=== PATIENT | female | born 1990 | race Two or more races ===

== ENCOUNTER 2016-11-17 02:42 | Emergency (ER) | payer MEDICAID ==
[2016-11-17] MEDS ORDERED: ONDANSETRON 4 MG TAB.RAPDIS PO ONE (03:20)
--- NOTE | 2016-11-17 03:25 | ER Document Report ---
ED General - General Mode of Arrival: Ambulatory Information source: Patient TRAVEL OUTSIDE OF THE [place] IN LAST 30 DAYS: No - HPI Onset: Other - Refer to HPI notes Similar symptoms previously: No Recently seen / treated by doctor: No - General Chief Complaint: Abdominal Pain Stated Complaint: BACK PAIN Time Seen by Provider: 11/17/16 03:12 - HPI Notes: Patient is a 26-year-old female presents emergency department for back pain and abdominal pain. Patient states that she had back pain onset at 22:00 and her pain pain radiated around into her abdomen around 02:00 this morning. Patient is 9 weeks . Patient states her pain is exacerbated with movement. Patient denies any injury to her back or abdomen. Patient works at [employer] and has been lifting lots of clothes from the dressing room over the past few days. Patient also complains of some cough and some nausea due to her . Patient has no known allergies. (NIKHIL SOSA) - Related Data Allergies/Adverse Reactions: No Known Allergies Allergy (Verified 11/17/16 02:46) Past Medical History - General Information source: Patient - Social History Smoking Status: Never Smoker Cigarette use (# per day): No Chew tobacco use (# tins/day): No Smoking Education Provided: No Frequency of alcohol use: None Drug Abuse: None Family History: Reviewed & Not Pertinent Patient has suicidal ideation: No Patient has homicidal ideation: No - Medical History Medical History: Negative Surgical Hx: Negative - Immunizations Immunizations up to date: Yes Review of Systems - Review of Systems Constitutional: No symptoms reported EENT: No symptoms reported Cardiovascular: No symptoms reported Respiratory: See HPI, Cough Gastrointestinal: See HPI, Abdominal pain, Nausea Genitourinary: No symptoms reported Female Genitourinary: See HPI, Musculoskeletal: See HPI, Back pain Skin: No symptoms reported Hematologic/Lymphatic: No symptoms reported Neurological/Psychological: No symptoms reported -: Yes All other systems reviewed and negative Physical Exam - Vital signs Interpretation: Normal - Vital signs Vitals: Temp Pulse Resp BP Pulse Ox 97.5 F 70 18 136/79 H 99 11/17/16 02:47 11/17/16 02:47 11/17/16 02:47 11/17/16 02:47 11/17/16 02:47 - Notes Notes: GENERAL: Alert, interacts well. No acute distress. HEAD: Normocephalic, atraumatic. EYES: Appear normal. Pupils equal, round, and reactive to light. ENT: Moist mucus membranes, tongue midline. NECK: Full range of motion. Supple. Trachea midline. LUNGS: Clear to auscultation bilaterally, no wheezes, rales, or rhonchi. No respiratory distress. HEART: Regular rate and rhythm. No murmurs, gallops, or rubs. ABDOMEN: Soft, non-tender. Non-distended. Normal bowel sounds. Reproducible tenderness with palpation over the left lower rib cage. EXTREMITIES: Moves all 4 extremities spontaneously. Normal strength. No edema. NEUROLOGICAL: Alert and oriented x3. Normal speech. No focal neurological deficits. GCS 15. PSYCH: Normal affect, normal mood. SKIN: Warm, dry, normal turgor. No rashes or lesions noted. (NIKHIL SOSA) Course - Re-evaluation Re-evalutation: 11/17/16 Patient with vomiting in and chest wall pain that is reproducible.. Patient feels better after Zofran, Reglan, and Tylenol. She will be discharged home is to follow-up with her doctor. Stable for discharge. (EDUARD DUNN) - Vital Signs Vital signs: Temp Pulse Resp BP Pulse Ox 97.5 F 64 12 128/86 H 99 11/17/16 02:47 11/17/16 05:00 11/17/16 05:00 11/17/16 05:00 11/17/16 05:00 Discharge - Discharge Clinical Impression: Chest wall pain Qualifiers: Weeks of gestation: 9 weeks Qualified Code(s): Z3A.09 - 9 weeks gestation of Vomiting Qualifiers: Vomiting type: unspecified Vomiting Intractability: non-intractable Nausea presence: with nausea Qualified Code(s): R11.2 - Nausea with vomiting, unspecified Condition: Stable Disposition: HOME, SELF-CARE Instructions: Chest Wall Pain ([facility]), Vomiting ([facility]) Prescriptions: Metoclopramide HCl [Reglan 10 mg Tablet] 1 tab PO TIDP PRN #25 tablet PRN Reason: Forms: Return to Work Scribe Attestation: 11/17/16 10:28 I personally performed the services described in the documentation, reviewed and edited the documentation which was dictated to the scribe in my presence, and it accurately records my words and actions. (EDUARD DUNN) Scribe Documentation - Scribe Written by Scribe:: Nikhil Ssoa, David, 11/17/2016 4:00 acting as scribe for :: [employer]
[2016-11-17] MEDS ORDERED: ACETAMINOPHEN SUSP 160 MG/5 ML ORAL SYRING PO ONE (03:55)
[2016-11-17] MEDS ORDERED: METOCLOPRAMIDE HCL 10 MG TABLET PO ONE (04:15)
[2016-11-17] MEDS ORDERED: SUCRALFATE 1 GM TABLET PO ONE (04:50)
[2016-11-17 05:02] VITALS: BP 128/86
== END 2016-11-17 05:02 | disposition home or self-care (01) ==
LOC: ER 02:42
DX: O26.91 Pregnancy related conditions, unspecified, first trimester (principal); R07.89 Other chest pain; M54.9 Dorsalgia, unspecified; R10.9 Unspecified abdominal pain; O21.9 Vomiting of pregnancy, unspecified; Z3A.09 9 weeks gestation of pregnancy
CPT/HCPCS: 99283; S0119

== ENCOUNTER 2016-12-01 08:25 | Emergency (ER) | payer MEDICAID ==
--- NOTE | 2016-12-01 09:08 | ER Document Report ---
ED GI/ - General Chief Complaint: Abdominal Pain Stated Complaint: BACK PAIN Time Seen by Provider: 12/01/16 08:50 Mode of Arrival: Ambulatory Information source: Patient Notes: 26-year-old female 11 weeks is complaining of left sided lumbar back pain that she has intermittently. She attributes this pain to the bed that she sleeps on. It started 10 PM last night. No radiculopathy, no saddle anesthesia. No history kidney stones. No dysuria. She is also complaining of vomiting 3 times today which she has had that problem since she became . seh is complaining of upper abdominal pain. no pelvic pain or vaginal bleeding. heart tones are 185 at this time at the bedside. TRAVEL OUTSIDE OF THE [place] IN LAST 30 DAYS: No - Related Data Allergies/Adverse Reactions: No Known Allergies Allergy (Verified 12/01/16 08:31) Past Medical History - General Information source: Patient - Social History Smoking Status: Never Smoker Frequency of alcohol use: None Drug Abuse: None Lives with: Spouse/Significant other Family History: Reviewed & Not Pertinent Renal/ Medical History: Denies: Hx Peritoneal Dialysis Surgical Hx: Other - miscarriage at 5 weeks - Immunizations Immunizations up to date: Yes Review of Systems - Review of Systems Constitutional: No symptoms reported EENT: No symptoms reported Cardiovascular: No symptoms reported Respiratory: No symptoms reported Gastrointestinal: See HPI Genitourinary: No symptoms reported Female Genitourinary: No symptoms reported Musculoskeletal: See HPI Skin: No symptoms reported Hematologic/Lymphatic: No symptoms reported Neurological/Psychological: No symptoms reported Physical Exam - Vital signs Vitals: Temp Pulse Resp BP Pulse Ox 98.5 F 62 16 124/72 99 12/01/16 08:31 12/01/16 08:31 12/01/16 08:31 12/01/16 08:31 12/01/16 08:31 Interpretation: Normal - General General appearance: Appears well, Alert In distress: None - HEENT Head: Normocephalic, Atraumatic Eyes: Normal Conjunctiva: Normal Pupils: PERRL Mucous membranes: Normal Neck: Supple. No: Lymphadenopathy - Respiratory Respiratory status: No respiratory distress Chest status: Nontender Breath sounds: Normal Chest palpation: Normal - Cardiovascular Rhythm: Regular Heart sounds: Normal auscultation Murmur: No - Abdominal Inspection: Normal Distension: No distension Bowel sounds: Normal Tenderness: Tender - Right upper quadrant Organomegaly: Other - minimal fundal above the symphysis pubis, FHT 185. No: Hepatomegaly, Splenomegaly - Back Back: Normal, Tender - Left lumbar muscles. No: CVA tenderness - Extremities General upper extremity: Normal inspection, Nontender, Normal color, Normal ROM , Normal temperature General lower extremity: Normal inspection, Nontender, Normal color, Normal ROM , Normal temperature, Normal weight bearing. No: Cherise's sign - Neurological Neuro grossly intact: Yes Cognition: Normal Orientation: AAOx4 [place] Coma Scale Eye Opening: Spontaneous [place] Coma Scale Verbal: Oriented [place] Coma Scale Motor: Obeys Commands [place] Coma Scale Total: 15 Speech: Normal Motor strength normal: LUE, RUE, LLE, RLE Sensory: Normal - Psychological Associated symptoms: Normal affect, Normal mood - Skin Skin Temperature: Warm Skin Moisture: Dry Skin Color: Normal Skin irregularity: other - Extensive back birthmark Course - Re-evaluation Re-evalutation: 12/01/16 11:47 pt feels better, drinking water, no nausea or vomiting in the ER, walked around in the room. Ultrasound shows one gallstone in the gallbladder neck there is no obstruction or signs of cholecystitis. Labs are normal. I will give the patient a prescription for Reglan for nausea she will be having a [facility]-up [facility]. I will give her a referral to general surgery and recommended follow-up with the surgical clinic but to return to the emergency room if symptoms worsen. I also told her to eat a low- fat diet. - Vital Signs Vital signs: Temp Pulse Resp BP Pulse Ox 97.6 F 72 16 112/63 100 12/01/16 12:25 12/01/16 12:25 12/01/16 12:25 12/01/16 12:25 12/01/16 12:25 - Laboratory Result Diagrams: 12/01/16 09:16 12/01/16 09:16 Laboratory results interpreted by me: 12/01/16 12/01/16 09:16 09:16 Hct 35.2 L Seg Neutrophils % 80.4 H Monocytes % 2.5 L Urine Protein 30 H Urine Blood SMALL H Ur Leukocyte Esterase LARGE H Discharge - Discharge Clinical Impression: nausea, 11 weeks gestation of Gallstone Qualifiers: Cholecystitis presence: without cholecystitis Biliary obstruction: without biliary obstruction Qualified Code(s): K80.20 - Calculus of gallbladder without cholecystitis without obstruction Vomiting Qualifiers: Vomiting type: unspecified Vomiting Intractability: non-intractable Nausea presence: with nausea Qualified Code(s): R11.2 - Nausea with vomiting, unspecified Low back strain Qualifiers: Encounter type: initial encounter Qualified Code(s): S39.012A - Strain of muscle, fascia and tendon of lower back, initial encounter Condition: Good Disposition: HOME, SELF-CARE Instructions: Acetaminophen, Antinausea Medication ([facility]), Intravenous (IV) Fluids ([facility]), Low-Fat Diet ([facility]), [facility], ( [facility]), Reglan ([facility]), Vomiting ([facility]), [facility] ([facility]) Additional Instructions: plenty of fluids low fat diet return to the ER if symptoms recur or get worse the Reglan can be taken every 6 hours as needed for nausea see health dept on friday as planned copy of labs given to you Please complete the patient satisfaction survey if you get one, and return it.. If you do not receive a survey, then you can go to the [facility] website, [email or web address] and place your comments about your very good care. Thank you very much. It was a pleasure being your medical provider today. Prescriptions: Metoclopramide HCl [Reglan 10 mg Tablet] 10 mg PO Q6HP PRN #20 tablet PRN Reason: Forms: Return to Work Referrals: JOCELYNE MIRANDA MD [ACTIVE STAFF] - Follow up in 1 week
[2016-12-01] MEDS ORDERED: NORMAL SALINE 1000 ML 1,000 ML IV ONE (09:20)
[2016-12-01 09:30] LABS: ABSOLUTE BASOPHILS # (AUTO) 0.1 10^3/uL (0.0-0.2); ABSOLUTE EOSINOPHILS # (AUTO) 0.1 10^3/uL (0.0-0.6); ABSOLUTE LYMPHOCYTES (AUTO) 1.3 10^3/uL (0.5-4.7); ABSOLUTE MONOCYTES (AUTO) 0.2 10^3/uL (0.1-1.4); ABSOLUTE NEUT (AUTO) 6.9 10^3/uL (1.7-8.2); BASOPHILS % (AUTO) 0.7 % (0-2); EOSINOPHILS % (AUTO) 0.8 % (0-6); HEMATOCRIT 35.2 % (36.0-47.0); HEMOGLOBIN 12.5 g/dL (12.0-15.5); HGB HCT DIFFERENCE 2.3; LYMPHOCYTES % (AUTO) 15.6 % (13-45); MEAN CORPUSCULAR HEMOGLOBIN 30.4 pg (27.0-33.4); MEAN CORPUSCULAR HGB CONC 35.4 g/dL (32.0-36.0); MEAN CORPUSCULAR VOLUME 86 fl (80-97); MONOCYTES % (AUTO) 2.5 % (3-13); RED CELL DISTRIBUTION WIDTH 12.8 % (11.5-14.0); SEGMENTED NEUTROPHILS % (AUTO) 80.4 % (42-78); WHITE BLOOD COUNT 8.6 10^3/uL (4.0-10.5)
[2016-12-01 09:36] LABS: APPEARANCE,URINE CLOUDY; BILIRUBIN,URINE NEGATIVE (NEGATIVE); GLUCOSE, URINE NEGATIVE (NEGATIVE); KETONES,URINE NEGATIVE (NEGATIVE); LEUKOCYTE ESTERASE,URINE LARGE (NEGATIVE); NITRITE,URINE NEGATIVE (NEGATIVE); PROTEIN,URINE 30 mg/dL (NEGATIVE); UROBILINOGEN,URINE NEGATIVE mg/dL (<2.0)
[2016-12-01 09:49] LABS: ALANINE AMINOTRANSFERASE 25 U/L (9-52); ALBUMIN 4.5 g/dL (3.5-5.0); ALKALINE PHOSPHATASE 53 U/L (38-126); ANION GAP 12 (5-19); ASPARTATE AMINO TRANSFERASE 19 U/L (14-36); BILIRUBIN,DIRECT 0.4 mg/dL (0.0-0.4); BILIRUBIN,TOTAL 0.4 mg/dL (0.2-1.3); BLOOD UREA NITROGEN 9 mg/dL (7-20); CALCIUM 9.7 mg/dL (8.4-10.2); CARBON DIOXIDE 23 mmol/L (22-30); CHLORIDE 104 mmol/L (98-107); CREATININE RESULT 0.53 mg/dL (0.52-1.25); GLUCOSE 103 mg/dL (75-110); LIPASE 127.2 U/L (23-300); POTASSIUM 4.1 mmol/L (3.6-5.0); SODIUM 138.5 mmol/L (137-145); TOTAL PROTEIN 7.5 g/dL (6.3-8.2)
--- NOTE | 2016-12-01 10:15 | RADIOLOGY REPORT (SQ) ---
EXAM DESCRIPTION: U/S ABDOMEN LIMITED W/O DOP COMPLETED DATE/TIME: 12/01/2016 10:01 am REASON FOR STUDY: RUQ tender COMPARISON: None. TECHNIQUE: Dynamic and static grayscale images acquired of the abdomen and recorded on PACS. Additio nal selected color Doppler and spectral images recorded. LIMITATIONS: None. FINDINGS: PANCREAS: No masses. Visualized pancreatic duct normal caliber. LIVER: No masses. Echotexture normal. LIVER VASCULATURE: Normal directional flow of the main portal vein and hepatic veins. GALLBLADDER: Gallstone is identified in the region of the gallbladder neck. Normal wall thickness. No pericholecystic fluid. ULTRASOUND-DETECTED LAI'S SIGN: Negative. INTRAHEPATIC DUCTS AND COMMON DUCT: CBD and intrahepatic ducts normal caliber. No filling defects. INFERIOR VENA CAVA: Normal flow. AORTA: No aneurysm. RIGHT KIDNEY: Normal size. Normal echogenicity. No solid or suspicious masses. No hydronephrosis. No calcifications. PERITONEAL AND RIGHT PLEURAL SPACE: No ascites or effusions. OTHER: No other significant findings. IMPRESSION: Gallstone is identified in the region of the gallbladder neck. No other significant int ra-abdominal abnormalities were identified. Other findings as noted above TECHNICAL DOCUMENTATION: JOB ID: [id number] [employer]- All Rights Reserved
[2016-12-01 12:27] VITALS: BP 112/63
== END 2016-12-01 12:26 | disposition home or self-care (01) ==
LOC: ER 08:25
DX: O99.611 Diseases of the digestive system complicating pregnancy, first trimester (principal); K80.20 Calculus of gallbladder without cholecystitis without obstruction; O21.8 Other vomiting complicating pregnancy; S39.012A Strain of muscle, fascia and tendon of lower back, initial encounter; X58.XXXA Exposure to other specified factors, initial encounter; Z3A.11 11 weeks gestation of pregnancy
CPT/HCPCS: 99284; 96360; 36415; 87086; 83690; 85025; 80053; 81001; 76705; J7030

== ENCOUNTER 2016-12-06 20:08 | Emergency (ER) | payer MEDICAID ==
--- NOTE | 2016-12-06 23:15 | RADIOLOGY REPORT (SQ) ---
EXAM DESCRIPTION: HAND LEFT 3 VIEWS COMPLETED DATE/TIME: 12/06/2016 11:05 pm REASON FOR STUDY: caught in door COMPARISON: None. EXAM PARAMETERS: NUMBER OF VIEWS: Three views. TECHNIQUE: AP, lateral and oblique radiographic images acquired of the left hand. LIMITATIONS: None. FINDINGS: MINERALIZATION: Normal. BONES: No acute fracture or dislocation. No worrisome bone lesions. JOINTS: No effusions. SOFT TISSUES: No soft tissue swelling. No foreign body. OTHER: No other significant finding. IMPRESSION: NEGATIVE STUDY OF THE LEFT HAND. NO RADIOGRAPHIC EVIDENCE OF ACUTE INJURY. TECHNICAL DOCUMENTATION: JOB ID: [id number] [employer]- All Rights Reserved
[2016-12-06] MEDS ORDERED: IBUPROFEN 600 MG TABLET PO ONE (23:27)
[2016-12-06] MEDS ORDERED: ACETAMINOPHEN 325 MG TABLET PO ONE (23:27)
--- NOTE | 2016-12-06 23:29 | ER Document Report ---
ED General - General Chief Complaint: Finger Injury Stated Complaint: FINGER INJURY Time Seen by Provider: 12/06/16 23:05 Notes: Patient is a 26-year-old female who presents after slamming her left ring finger in a car door prior to arrival. Since that time she has had a dull, constant, aching pain to the area. She has not tried anything to improve the pain. States attempts at moving the finger worsen the pain. She has no history of similar injury in the past. She is right-hand dominant. She denies any associated weakness or numbness. No additional injuries. TRAVEL OUTSIDE OF THE [place] IN LAST 30 DAYS: No - Related Data Allergies/Adverse Reactions: No Known Allergies Allergy (Verified 12/01/16 08:31) Past Medical History - General Information source: Patient - Social History Smoking Status: Never Smoker Frequency of alcohol use: None Drug Abuse: None Lives with: Spouse/Significant other Family History: Reviewed & Not Pertinent Patient has suicidal ideation: No Patient has homicidal ideation: No Pulmonary Medical History: Denies: Hx Asthma Neurological Medical History: Denies: Hx Migraine, Hx Seizures Renal/ Medical History: Denies: Hx Peritoneal Dialysis - Immunizations Immunizations up to date: Yes Review of Systems - Review of Systems Notes: Constitutional: Negative for fever. Eyes: Negative for visual changes. ENT: Negative for facial injury Cardiovascular: Negative for chest injury. Respiratory: Negative for shortness of breath. Gastrointestinal: Negative for abdominal injury. Genitourinary: Negative for genital injury Musculoskeletal: Positive for left ring finger injury Skin: Negative for laceration/abrasions. Neurological: Negative for head injury. Physical Exam - Vital signs Vitals: Temp Pulse Resp BP Pulse Ox 98.6 F 61 18 121/64 100 12/06/16 20:31 12/06/16 20:31 12/06/16 20:31 12/06/16 20:31 12/06/16 20:31 Interpretation: Normal Notes: PHYSICAL EXAMINATION: GENERAL: Well-appearing, well-nourished and in no acute distress. HEAD: Atraumatic, normocephalic. EYES: sclera anicteric, conjunctiva are normal. ENT: Moist mucous membranes. NECK: Normal range of motion LUNGS: Normal work of breathing HEART: 2+ radial pulses bilaterally EXTREMITIES: There is bruising and swelling of the distal aspect of the left fourth digit. Full flexion extension of the DIP, PIP and MCP. NEUROLOGICAL: No focal neurological deficits. Moves all extremities spontaneously and on command. PSYCH: Normal mood, normal affect. SKIN: Warm, Dry, normal turgor, no rashes or lesions noted. Course - Re-evaluation Re-evalutation: 12/06/16 23:28 Patient presents after catching her left ring finger in a car door. No evidence of fracture on imaging. No evidence of ligamentous injury at the DIP, PIP or MCP against resistance. Full flexion extension. No additional injuries. At this time will discharge with return precautions and follow-up recommendations. Verbal discharge instructions given a the bedside and opportunity for questions given. Medication warnings reviewed. Patient is in agreement with this plan and has verbalized understanding of return precautions and the need for primary care follow-up in the next 24-72 hours. - Vital Signs Vital signs: Temp Pulse Resp BP Pulse Ox 98.2 F 68 18 126/72 H 98 12/07/16 00:25 12/07/16 00:25 12/07/16 00:25 12/07/16 00:25 12/07/16 00:25 - Diagnostic Test Radiology reviewed: Image reviewed, Reports reviewed Radiology results interpreted by me: 12/07/16 03:22 Left hand x-ray: No acute fracture or dislocation Discharge - Discharge Clinical Impression: Injury of left ring finger Qualifiers: Encounter type: initial encounter Qualified Code(s): S69.92XA - Unspecified injury of left wrist, hand and finger(s), initial encounter Condition: Good Disposition: HOME, SELF-CARE Additional Instructions: Your x-ray does not show any acute fracture today. Your pain is likely due to a soft tissue injury. You should continue to take anti-inflammatories such as ibuprofen 600 mg every 6 hours. Continue to apply ice to the area is much your able. Please follow-up with your primary care physician if you do not have improving your symptoms in the next 1-2 weeks. Please return immediately if you develop weakness, numbness, spreading redness from the area, or any other symptoms that are concerning to you. Referrals: SANJEEV PORTER MD [Primary Care Provider] - Follow up as needed
[2016-12-07 00:26] VITALS: BP 126/72
== END 2016-12-07 00:25 | disposition home or self-care (01) ==
LOC: ER 20:08
DX: S60.042A Contusion of left ring finger without damage to nail, initial encounter (principal); W23.0XXA Caught, crushed, jammed, or pinched between moving objects, initial encounter
CPT/HCPCS: 99283; 73130; J3490

== ENCOUNTER 2016-12-21 02:03 | Emergency (ER) | payer MEDICAID ==
[2016-12-21 03:31] LABS: ABSOLUTE EOSINOPHILS # (AUTO) 0.2 10^3/uL (0.0-0.6); ABSOLUTE LYMPHOCYTES (AUTO) 2.3 10^3/uL (0.5-4.7); ABSOLUTE MONOCYTES (AUTO) 0.5 10^3/uL (0.1-1.4); ABSOLUTE NEUT (AUTO) 6.2 10^3/uL (1.7-8.2); BASOPHILS % (AUTO) 0.5 % (0-2); EOSINOPHILS % (AUTO) 2.1 % (0-6); HEMATOCRIT 33.7 % (36.0-47.0); HEMOGLOBIN 12.1 g/dL (12.0-15.5); HGB HCT DIFFERENCE 2.6; LYMPHOCYTES % (AUTO) 24.9 % (13-45); MEAN CORPUSCULAR HEMOGLOBIN 30.6 pg (27.0-33.4); MEAN CORPUSCULAR VOLUME 85 fl (80-97); MONOCYTES % (AUTO) 5.7 % (3-13); RED BLOOD COUNT 3.96 10^6/uL (3.72-5.28); RED CELL DISTRIBUTION WIDTH 12.9 % (11.5-14.0); SEGMENTED NEUTROPHILS % (AUTO) 66.8 % (42-78); WHITE BLOOD COUNT 9.2 10^3/uL (4.0-10.5)
[2016-12-21 03:55] LABS: ALANINE AMINOTRANSFERASE 24 U/L (9-52); ALBUMIN 3.8 g/dL (3.5-5.0); ALKALINE PHOSPHATASE 44 U/L (38-126); ANION GAP 13 (5-19); ASPARTATE AMINO TRANSFERASE 15 U/L (14-36); BILIRUBIN,DIRECT 0.1 mg/dL (0.0-0.4); BILIRUBIN,TOTAL 0.1 mg/dL (0.2-1.3); BLOOD UREA NITROGEN 8 mg/dL (7-20); CALCIUM 9.2 mg/dL (8.4-10.2); CARBON DIOXIDE 22 mmol/L (22-30); CHLORIDE 106 mmol/L (98-107); CREATININE RESULT 0.51 mg/dL (0.52-1.25); GLUCOSE 93 mg/dL (75-110); LIPASE 118.6 U/L (23-300); POTASSIUM 4.1 mmol/L (3.6-5.0); SODIUM 140.9 mmol/L (137-145); TOTAL PROTEIN 6.7 g/dL (6.3-8.2)
[2016-12-21 04:18] LABS: APPEARANCE,URINE SLIGHTLY-CLOUDY; BILIRUBIN,URINE NEGATIVE (NEGATIVE); GLUCOSE, URINE NEGATIVE (NEGATIVE); KETONES,URINE NEGATIVE (NEGATIVE); LEUKOCYTE ESTERASE,URINE SMALL (NEGATIVE); NITRITE,URINE NEGATIVE (NEGATIVE); PROTEIN,URINE NEGATIVE (NEGATIVE); UROBILINOGEN,URINE NEGATIVE mg/dL (<2.0)
--- NOTE | 2016-12-21 05:33 | RADIOLOGY REPORT (SQ) ---
EXAM DESCRIPTION: U/S ABDOMEN LIMITED W/O DOP COMPLETED DATE/TIME: 12/21/2016 5:15 am REASON FOR STUDY: RUQ pain COMPARISON: None. TECHNIQUE: Dynamic and static grayscale images acquired of the abdomen and recorded on PACS. Additio nal selected color Doppler and spectral images recorded. LIMITATIONS: None. FINDINGS: PANCREAS: No masses. Visualized pancreatic duct normal caliber. LIVER: Moderate hepatic steatosis. LIVER VASCULATURE: Normal directional flow of the main portal vein and hepatic veins. GALLBLADDER: 1.3 cm of gallstone at the gallbladder neck. ULTRASOUND-DETECTED LAI'S SIGN: Negative. INTRAHEPATIC DUCTS AND COMMON DUCT: 0.3 cm diameter CBD and intrahepatic ducts normal caliber. No maria a ling defects. INFERIOR VENA CAVA: Normal flow. AORTA: No aneurysm. RIGHT KIDNEY: Normal size. Normal echogenicity. No solid or suspicious masses. No hydronephrosis. No calcifications. PERITONEAL AND RIGHT PLEURAL SPACE: No ascites or effusions. OTHER: No other significant findings. IMPRESSION: 1.3 cm stone at the gallbladder neck. Moderate hepatic steatosis. TECHNICAL DOCUMENTATION: JOB ID: [id number] [employer]- All Rights Reserved
--- NOTE | 2016-12-21 05:57 | ER Document Report ---
ED GI/ - General Chief Complaint: Abdominal Pain Stated Complaint: FLANK PAIN AND BACK PAIN, 14 WEEKS Time Seen by Provider: 12/21/16 03:46 Notes: Patient is a 14 week 26-year-old female presents emergency department complaining of right upper quadrant pain and back pain. Patient states that she has known gallbladder disease but she feels that this pain is worse than her normal. She denies any fevers, chills. Is been able to tolerate p.o. without any difficulty. Has medication at home for nausea and Tylenol at home for pain but she did not take any of it. Otherwise she states that she has not had any vaginal or pelvic pain, bleeding, irritation. TRAVEL OUTSIDE OF THE [place] IN LAST 30 DAYS: No - Related Data Allergies/Adverse Reactions: No Known Allergies Allergy (Verified 12/21/16 02:07) Past Medical History - Social History Smoking Status: Never Smoker Family History: Reviewed & Not Pertinent Patient has suicidal ideation: No Patient has homicidal ideation: No Pulmonary Medical History: Denies: Hx Asthma Neurological Medical History: Denies: Hx Migraine, Hx Seizures Renal/ Medical History: Denies: Hx Peritoneal Dialysis - Immunizations Immunizations up to date: Yes Review of Systems - Review of Systems Constitutional: No symptoms reported Gastrointestinal: See HPI -: Yes All other systems reviewed and negative Physical Exam - Vital signs Vitals: Temp Pulse Resp BP Pulse Ox 97.9 F 81 18 123/95 H 100 12/21/16 02:08 12/21/16 02:08 12/21/16 02:08 12/21/16 02:08 12/21/16 02:08 - Notes Notes: PHYSICAL EXAM GENERAL: Alert, interacts well. HEAD: Normocephalic, atraumatic. EYES: Pupils equal, round, and reactive to light. Extraocular movements intact. ENT: Oral mucosa moist, tongue midline. NECK: Full range of motion. Supple. Trachea midline. LUNGS: Clear to auscultation bilaterally, no wheezes, rales, or rhonchi. No respiratory distress. HEART: Regular rate and rhythm. No murmurs, gallops, or rubs. ABDOMEN: Soft, nondistended, nontender. No guarding, rebound, or rigidity.. Bowel sounds present in all 4 quadrants. EXTREMITIES: Moves all 4 extremities spontaneously. No edema, radial and dorsalis pedis pulses 2/4 bilaterally. No cyanosis. NEUROLOGICAL: Alert and oriented x4. Normal speech. PSYCH: Normal affect, normal mood. SKIN: Warm, dry, normal turgor. No rashes or lesions noted. Course - Re-evaluation Re-evalutation: 12/21/16 05:56 Ultrasound today shows that she still has a stone within the gallbladder neck without any evidence of inflammation of the gallbladder common bile duct stone. Patient is tolerating p.o. without any difficulty. Vital signs stable. No evidence of leukocytosis or elevated liver function. Patient is stable for discharge home and to follow-up with [facility]. Patient agrees with plan. - Vital Signs Vital signs: Temp Pulse Resp BP Pulse Ox 98.4 F 74 16 121/69 99 12/21/16 06:12 12/21/16 06:12 12/21/16 06:12 12/21/16 06:12 12/21/16 06:12 - Laboratory Result Diagrams: 12/21/16 03:10 12/21/16 03:10 Laboratory results interpreted by me: 12/21/16 12/21/16 12/21/16 03:10 03:10 03:55 Hct 33.7 L Creatinine 0.51 L Total Bilirubin 0.1 L Urine Blood SMALL H Ur Leukocyte Esterase SMALL H Urine HCG, Qual POSITIVE H - Diagnostic Test Radiology reviewed: Reports reviewed Discharge - Discharge Clinical Impression: Cholelithiasis Qualifiers: Cholelithiasis location: gallbladder Cholecystitis presence: without cholecystitis Biliary obstruction: without biliary obstruction Qualified Code(s) : K80.20 - Calculus of gallbladder without cholecystitis without obstruction Condition: Good Disposition: HOME, SELF-CARE Instructions: Gallbladder Disease ([facility]) Additional Instructions: Please take your home nausea medication as prescribed otherwise you can take Tylenol for pain. [facility] with [facility] as scheduled. Referrals: JOCELYNE BERNAL MD [Primary Care Provider] - Follow up as needed
[2016-12-21 06:14] VITALS: BP 121/69
== END 2016-12-21 06:10 | disposition home or self-care (01) ==
LOC: ER 02:03
DX: O99.612 Diseases of the digestive system complicating pregnancy, second trimester (principal); K80.20 Calculus of gallbladder without cholecystitis without obstruction; O26.892 Other specified pregnancy related conditions, second trimester; R10.11 Right upper quadrant pain; Z3A.14 14 weeks gestation of pregnancy
CPT/HCPCS: 36415; 76705; 80053; 81001; 81025; 83690; 85025; 99284

== ENCOUNTER 2016-12-25 02:52 | Emergency (ER) | payer MEDICAID ==
[2016-12-25] MEDS ORDERED: ONDANSETRON HCL INJ/PF 4 MG/2 ML SDV IV ONE (03:13)
[2016-12-25] MEDS ORDERED: NORMAL SALINE 1000 ML 1,000 ML IV ONE (03:13)
[2016-12-25] MEDS ORDERED: MORPHINE SULFATE 10 MG/ML INJ IV ONE (03:13)
--- NOTE | 2016-12-25 03:16 | ER Document Report ---
ED General - General Chief Complaint: Abdominal Pain Stated Complaint: BACK AND ABDOMINAL PAIN Time Seen by Provider: 12/25/16 03:12 Notes: Patient is a 26-year-old male who presents with complaint of pain in the upper abdomen that radiates into her back. Patient says she has a history of gallstones. She says that she talked to her women's health doctor says that the preferred to wait until after her is over to have her gallstones out. She is approximately 13 weeks . She has had normal ultrasounds so far with her . They have seen the baby and the uterus with her previous ultrasounds. She has had no abnormal vaginal discharge or bleeding. She did vomit once today. No blood or emesis. No fevers. No other complaints at this time. Normal vaginal bleeding or discharge. TRAVEL OUTSIDE OF THE [place] IN LAST 30 DAYS: No - Related Data Allergies/Adverse Reactions: No Known Allergies Allergy (Verified 12/21/16 02:07) Past Medical History - Social History Smoking Status: Never Smoker Frequency of alcohol use: None Drug Abuse: None Family History: Reviewed & Not Pertinent Patient has suicidal ideation: No Patient has homicidal ideation: No Pulmonary Medical History: Denies: Hx Asthma Neurological Medical History: Denies: Hx Migraine, Hx Seizures Renal/ Medical History: Denies: Hx Peritoneal Dialysis - Immunizations Immunizations up to date: Yes Review of Systems - Review of Systems Notes: My Normal Review Basic REVIEW OF SYSTEMS: CONSTITUTIONAL : Denies fever, chills, or sweats. Denies recent illness. EENT: Denies eye, ear, throat, or mouth pain or symptoms. Denies nasal or sinus congestion. CARDIOVASCULAR: Denies chest pain. RESPIRATORY: Denies cough, cold, or chest congestion. Denies shortness of breath, difficulty breathing, or wheezing. GASTROINTESTINAL: Normal pain is worse in the upper abdomen. One episode of vomiting. GENITOURINARY: Denies difficulty urinating, painful urination, burning, frequency, or blood in urine. FEMALE GENITOURINARY: Denies vaginal bleeding, abnormal or irregular periods. LMP: Only MUSCULOSKELETAL: Some back pain. SKIN: Denies rash or skin lesions. ALL OTHER SYSTEMS REVIEWED AND NEGATIVE. Physical Exam - Vital signs Vitals: Temp Pulse Resp BP Pulse Ox 98.3 F 76 18 119/72 100 12/25/16 02:58 12/25/16 02:58 12/25/16 02:58 12/25/16 02:58 12/25/16 02:58 - Notes Notes: General Appearance: Well nourished, alert, cooperative, no acute distress, mild to moderate obvious discomfort. Vitals: reviewed, See vital signs table. Head: no swelling or tenderness to the head Eyes: PERRL, EOMI, Conjuctiva clear Mouth: No decreasd moisture Throat: No tonsillar inflammation, No airway obstruction, No lymphadenopathy Lungs: No wheezing, No rales, No rhonci, No accessory muscle use, good air exchange bilaterally. Heart: Normal rate, Regular rythm, No murmur, no rub Abdomen: Normal BS, soft, No rigidity, mild diffuse abdominal tenderness that is worse over the epigastric region., No guarding, no rebound, Extremities: strength 5/5 in all extremities, good pulses in all extremities, no swelling or tenderness in the extremities, no edema. Skin: warm, dry, appropriate color, no rash Neuro: speech clear, oriented x 3, normal affect, responds appropriately to questions. Course - Re-evaluation Re-evalutation: 12/25/16 05:53 Patient's pain is now resolved. Her nausea and vomiting is resolved. She still request to speak with the surgeon about possibly having her gallbladder removed. I did inform her that it is unlikely would remove her gallbladder being that her laboratory evaluation is unremarkable and that she is 13 weeks . She does have a non-mobile stone in the gallbladder neck. I did call and speak with Dr. Medina, general surgeon on-call, who agrees that she should wait a little bit longer for having gallbladder removed as currently she is still early in and she is a much higher risk of miscarriage. I did explain this to the patient and she is understanding of this. She agrees to wait to follow-up with surgery clinic out patiently patient. I talked her at length about avoiding fatty foods. I informed her that eating a bland diet help prevent her pain exacerbations and prevent her nausea. I will prescribe her some nausea medicine. I informed her that she should still return to ER immediately if she has recurrent intractable pain, recurrent vomiting, or fevers. Patient agrees with plan will be discharged home. Dictation of this chart was performed using voice recognition software; therefore, there may be some unintended grammatical errors. - Vital Signs Vital signs: Temp Pulse Resp BP Pulse Ox 98.3 F 76 18 119/72 100 12/25/16 02:58 12/25/16 02:58 12/25/16 02:58 12/25/16 02:58 12/25/16 02:58 - Laboratory Result Diagrams: 12/25/16 03:30 12/25/16 03:30 Laboratory results interpreted by me: 12/25/16 12/25/16 12/25/16 03:06 03:30 03:30 Hct 34.1 L BUN 5 L AST 13 L Beta HCG, Quant 69911.00 H Urine Protein 30 H Urine Blood MODERATE H Ur Leukocyte Esterase TRACE H Discharge - Discharge Clinical Impression: Cholelithiasis Qualifiers: Cholelithiasis location: gallbladder Cholecystitis presence: without cholecystitis Biliary obstruction: without biliary obstruction Qualified Code(s) : K80.20 - Calculus of gallbladder without cholecystitis without obstruction Condition: Good Disposition: HOME, SELF-CARE Additional Instructions: Gallbladder Disease Your evaluation shows evidence of gallbladder disease. The gallbladder is a pouch under the liver which stores bile. Stones, infection, or irritation of the gallbladder cause attacks of pain. Certain foods -- fats in particular -- may provoke attacks. The usual treatment for gallbladder disease is surgical removal of the gallbladder -- called a cholecystectomy. You will be referred to a physician qualified to advise you on the best treatment for your problem. Hospitalization is not necessary. Take clear liquids only until you are painfree. After that, you should stay on a low-fat diet, with frequent SMALL meals. Call the doctor or return at once if you develop severe pain, repeated vomiting, fever, or jaundice (a yellow color in the skin and whites of the eyes) . Please avoid any meals that have any type of fat in them. Avoid all fried foods. Avoid dairy products. He is a very bland diet. Eating a bland diet will help prevent recurrence of pain and nausea. He should return to the ER immediately if you have severe unrelenting pain, fevers, or vomiting. Please follow-up with the surgery clinic. The phone number to the surgery clinic is under the name Dr. Miranda. Prescriptions: Ondansetron [Zofran Odt 4 mg Tablet] 1 tab PO Q4H PRN #15 tab.rapdis PRN Reason: For Nausea/Vomiting Referrals: JOCELYNE MIRANDA MD [ACTIVE STAFF] - Follow up in 3-5 days
[2016-12-25 03:23] LABS: APPEARANCE,URINE CLOUDY; BILIRUBIN,URINE NEGATIVE (NEGATIVE); GLUCOSE, URINE NEGATIVE (NEGATIVE); KETONES,URINE NEGATIVE (NEGATIVE); LEUKOCYTE ESTERASE,URINE TRACE (NEGATIVE); NITRITE,URINE NEGATIVE (NEGATIVE); PROTEIN,URINE 30 mg/dL (NEGATIVE); URINE SPECIFIC GRAVITY 1.016; UROBILINOGEN,URINE NEGATIVE mg/dL (<2.0)
[2016-12-25 03:45] LABS: ABSOLUTE BASOPHILS # (AUTO) 0.1 10^3/uL (0.0-0.2); ABSOLUTE EOSINOPHILS # (AUTO) 0.2 10^3/uL (0.0-0.6); ABSOLUTE LYMPHOCYTES (AUTO) 2.3 10^3/uL (0.5-4.7); ABSOLUTE MONOCYTES (AUTO) 0.5 10^3/uL (0.1-1.4); ABSOLUTE NEUT (AUTO) 6.7 10^3/uL (1.7-8.2); BASOPHILS % (AUTO) 0.6 % (0-2); EOSINOPHILS % (AUTO) 1.8 % (0-6); HEMATOCRIT 34.1 % (36.0-47.0); HEMOGLOBIN 12.1 g/dL (12.0-15.5); HGB HCT DIFFERENCE 2.2; LYMPHOCYTES % (AUTO) 23.7 % (13-45); MEAN CORPUSCULAR HEMOGLOBIN 30.7 pg (27.0-33.4); MEAN CORPUSCULAR HGB CONC 35.6 g/dL (32.0-36.0); MEAN CORPUSCULAR VOLUME 86 fl (80-97); MONOCYTES % (AUTO) 5.1 % (3-13); RED BLOOD COUNT 3.96 10^6/uL (3.72-5.28); SEGMENTED NEUTROPHILS % (AUTO) 68.8 % (42-78); WHITE BLOOD COUNT 9.7 10^3/uL (4.0-10.5)
[2016-12-25 04:08] LABS: ALANINE AMINOTRANSFERASE 25 U/L (9-52); ALBUMIN 3.9 g/dL (3.5-5.0); ALKALINE PHOSPHATASE 42 U/L (38-126); ANION GAP 13 (5-19); ASPARTATE AMINO TRANSFERASE 13 U/L (14-36); BILIRUBIN,DIRECT 0.3 mg/dL (0.0-0.4); BILIRUBIN,TOTAL 0.3 mg/dL (0.2-1.3); BLOOD UREA NITROGEN 5 mg/dL (7-20); CALCIUM 9.1 mg/dL (8.4-10.2); CARBON DIOXIDE 23 mmol/L (22-30); CHLORIDE 104 mmol/L (98-107); CREATININE RESULT 0.56 mg/dL (0.52-1.25); GLUCOSE 101 mg/dL (75-110); LIPASE 119.5 U/L (23-300); POTASSIUM 4.2 mmol/L (3.6-5.0); SODIUM 140.4 mmol/L (137-145); TOTAL PROTEIN 6.8 g/dL (6.3-8.2)
--- NOTE | 2016-12-25 04:42 | RADIOLOGY REPORT (SQ) ---
EXAM DESCRIPTION: U/S ABDOMEN LTD W/DOPPLER COMPLETED DATE/TIME: 12/25/2016 4:24 am REASON FOR STUDY: upper abdominal pain, history of gallstones . Patient is 13 weeks . COMPARISON: Right upper quadrant ultrasound 12/21/2016. TECHNIQUE: Grayscale images acquired of the right upper quadrant and recorded on PACS. Additional se lected color Doppler and spectral images recorded. LIMITATIONS: Acoustical interference from fat or from air in the bowel. FINDINGS: PANCREAS: Partially obscured by overlying bowel gas. The visualized pancreas in the midli ne is unremarkable. LIVER: Measures 17.1 cm. Echotexture within normal limits. LIVER VASCULATURE: Normal directional flow of the main portal vein. GALLBLADDER: Stones and sludge are seen within the gallbladder. There is a 1.8 cm gallstone at the g allbladder neck. Normal wall thickness. No pericholecystic fluid. ULTRASOUND-DETECTED LAI'S SIGN: Negative. INTRAHEPATIC DUCTS AND COMMON DUCT: CBD and intrahepatic ducts normal caliber. INFERIOR VENA CAVA: Patent. AORTA: No aneurysm in the visualized segments. RIGHT KIDNEY: Measures 11.5 cm in length. No hydronephrosis. Echotexture within normal limits. PERITONEAL CAVITY AND RIGHT PLEURAL SPACE: No ascites or effusion. IMPRESSION: Cholelithiasis and gallbladder sludge with a gallstone at the gallbladder neck. No bili rico ductal dilation. TECHNICAL DOCUMENTATION: JOB ID: [id number] [employer]- All Rights Reserved
[2016-12-25 06:10] VITALS: BP 113/63
== END 2016-12-25 06:11 | disposition home or self-care (01) ==
LOC: ER 02:52
DX: K80.20 Calculus of gallbladder without cholecystitis without obstruction (principal); R10.9 Unspecified abdominal pain; M54.9 Dorsalgia, unspecified; R10.10 Upper abdominal pain, unspecified; Z3A.13 13 weeks gestation of pregnancy
CPT/HCPCS: 99284; 96361; 96374; 96375; 36415; 84702; 83690; 85025; 80053; 81001; 76705; 93976; J2270; J2405; J7030

== ENCOUNTER 2017-01-24 04:27 | Emergency (ER) | payer MEDICAID ==
[2017-01-24] MEDS ORDERED: NORMAL SALINE 1000 ML 1,000 ML IV ONE (05:08)
--- NOTE | 2017-01-24 05:12 | ER Document Report ---
ED General - General Chief Complaint: Back Pain Stated Complaint: BACK PAIN Time Seen by Provider: 01/24/17 04:52 Mode of Arrival: Ambulatory Information source: Patient Notes: 26-year-old female currently at 17+6 weeks of presents to ED today with acute complaints of sharp mid, right, and left-sided abdominal pain ( R > L) radiating into generalized back pain. Patient reports symptoms began approximately 4 hours ago. Patient reports she has been seen previously in ED multiple times, last time 10 days ago, for same symptoms. Additionally, patient reports burning with urination, urinary urgency, and urinary frequency for the past 2-3 days. Patient was prescribed Keflex for a UTI at last ED visit, but reports she never obtained or took medication. Patient denies additional associated symptoms including fever, chills, nausea, or vomiting. Patient reports good movement and denies vaginal leaking or bleeding. Patient was diagnosed with gallstone but reports surgeon will not perform surgery to remove until she is . Home remedies attempted include heating pad with little to no relief. TRAVEL OUTSIDE OF THE [place] IN LAST 30 DAYS: No - Related Data Allergies/Adverse Reactions: No Known Allergies Allergy (Verified 12/21/16 02:07) Past Medical History - General Information source: Patient - Social History Smoking Status: Unknown if Ever Smoked Family History: Reviewed & Not Pertinent Patient has suicidal ideation: No Patient has homicidal ideation: No Pulmonary Medical History: Denies: Hx Asthma Neurological Medical History: Denies: Hx Migraine, Hx Seizures Renal/ Medical History: Denies: Hx Peritoneal Dialysis - Immunizations Immunizations up to date: Yes Review of Systems - Review of Systems Constitutional: See HPI EENT: No symptoms reported Cardiovascular: No symptoms reported Respiratory: No symptoms reported Gastrointestinal: See HPI Genitourinary: See HPI Female Genitourinary: No symptoms reported Musculoskeletal: No symptoms reported Skin: No symptoms reported Hematologic/Lymphatic: No symptoms reported Neurological/Psychological: No symptoms reported Physical Exam - Vital signs Vitals: Temp Pulse Resp BP Pulse Ox 97.3 F 74 18 127/76 H 100 01/24/17 04:36 01/24/17 04:36 01/24/17 04:36 01/24/17 04:36 01/24/17 04:36 - Notes Notes: PHYSICAL EXAMINATION: GENERAL: Tearful, though well-appearing and in no acute distress. Alert, oriented, and cooperative with exam. HEAD: Atraumatic, normocephalic. LUNGS: CTAB and equal. No wheezes rales or rhonchi. HEART: Regular rate and rhythm without murmurs ABDOMEN: Gravid, soft, normoactive bowel sounds x 4. Mild tenderness noted to mid, right and left side with no guarding, no rebound BACK: No vertebral tenderness, normal ROM, mild tenderness noted to right and left side thoracic and lumbar paraspinal region. GI/: Mild nonspecific CVA tenderness noted EXTREMITIES: Normal range of motion, no edema, no cyanosis PSYCH: Normal mood, normal affect. SKIN: Warm, Dry, normal turgor, no rashes or lesions noted Course - Re-evaluation Re-evalutation: Patient not ill appearing on exam and declines any pain medicine. Vital signs unremarkable. CBC, chemistry, lipase unremarkable. Urinalysis shows large leukocyte esterase and some white blood cells. Nonspecific but she is , discussed with patient, will provide repeat prescription for Keflex, as patient lost original, and treat for UTI. As current symptoms are acute flare of ongoing issue, with patient denying new or worsening symptoms, and patient reporting improvement in symptoms with IV fluids, will discharge home with strict follow-up instructions and return precautions. - Vital Signs Vital signs: Temp Pulse Resp BP Pulse Ox 97.3 F 74 18 127/76 H 100 01/24/17 04:36 01/24/17 04:36 01/24/17 04:36 01/24/17 04:36 01/24/17 04:36 - Laboratory Result Diagrams: 01/24/17 05:28 01/24/17 05:28 Laboratory results interpreted by me: 01/24/17 01/24/17 05:28 05:28 BUN 5 L Creatinine 0.50 L Ur Leukocyte Esterase LARGE H Discharge - Discharge Clinical Impression: Abdominal pain Qualifiers: Abdominal location: unspecified location Qualified Code(s): R10.9 - Unspecified abdominal pain Urinary tract infection Qualifiers: Urinary tract infection type: acute cystitis Hematuria presence: without hematuria Qualified Code(s): N30.00 - Acute cystitis without hematuria Back pain Qualifiers: Back pain location: back pain in unspecified location Chronicity: acute Back pain laterality: unspecified Qualified Code(s): M54.9 - Dorsalgia, unspecified Condition: Stable Disposition: HOME, SELF-CARE Instructions: Abdominal Pain ([facility]), Urinary Tract Infection ([facility]), Cephalexin ( [facility]) Additional Instructions: Return immediately for any new or worsening symptoms. Follow up with OB provider and primary care provider, call later today to make follow up appointment. Prescriptions: Cephalexin Monohydrate [Keflex 500 mg Capsule] 500 mg PO BID 7 Days #13 capsule Referrals: JOCELYNE BERNAL MD [Primary Care Provider] - Follow up as needed
[2017-01-24 05:38] LABS: ABSOLUTE BASOPHILS # (AUTO) 0.1 10^3/uL (0.0-0.2); ABSOLUTE EOSINOPHILS # (AUTO) 0.2 10^3/uL (0.0-0.6); ABSOLUTE LYMPHOCYTES (AUTO) 2.9 10^3/uL (0.5-4.7); ABSOLUTE MONOCYTES (AUTO) 0.6 10^3/uL (0.1-1.4); ABSOLUTE NEUT (AUTO) 5.3 10^3/uL (1.7-8.2); BASOPHILS % (AUTO) 0.7 % (0-2); EOSINOPHILS % (AUTO) 2.7 % (0-6); HEMOGLOBIN 12.9 g/dL (12.0-15.5); HGB HCT DIFFERENCE 1.7; LYMPHOCYTES % (AUTO) 32.2 % (13-45); MEAN CORPUSCULAR HEMOGLOBIN 30.4 pg (27.0-33.4); MEAN CORPUSCULAR HGB CONC 34.8 g/dL (32.0-36.0); MEAN CORPUSCULAR VOLUME 88 fl (80-97); MONOCYTES % (AUTO) 6.5 % (3-13); RED BLOOD COUNT 4.23 10^6/uL (3.72-5.28); RED CELL DISTRIBUTION WIDTH 13.4 % (11.5-14.0); SEGMENTED NEUTROPHILS % (AUTO) 57.9 % (42-78); WHITE BLOOD COUNT 9.2 10^3/uL (4.0-10.5)
[2017-01-24 05:53] LABS: ALANINE AMINOTRANSFERASE 32 U/L (9-52); ALBUMIN 4.2 g/dL (3.5-5.0); ALKALINE PHOSPHATASE 51 U/L (38-126); ANION GAP 14 (5-19); ASPARTATE AMINO TRANSFERASE 18 U/L (14-36); BILIRUBIN,DIRECT 0.3 mg/dL (0.0-0.4); BILIRUBIN,TOTAL 0.3 mg/dL (0.2-1.3); BLOOD UREA NITROGEN 5 mg/dL (7-20); CALCIUM 9.6 mg/dL (8.4-10.2); CARBON DIOXIDE 22 mmol/L (22-30); CHLORIDE 104 mmol/L (98-107); GLUCOSE 90 mg/dL (75-110); LIPASE 128.8 U/L (23-300); POTASSIUM 4.1 mmol/L (3.6-5.0); SODIUM 140.4 mmol/L (137-145); TOTAL PROTEIN 7.3 g/dL (6.3-8.2)
[2017-01-24 06:16] LABS: APPEARANCE,URINE SLIGHTLY-CLOUDY; BILIRUBIN,URINE NEGATIVE (NEGATIVE); GLUCOSE, URINE NEGATIVE (NEGATIVE); KETONES,URINE NEGATIVE (NEGATIVE); LEUKOCYTE ESTERASE,URINE LARGE (NEGATIVE); NITRITE,URINE NEGATIVE (NEGATIVE); PROTEIN,URINE NEGATIVE (NEGATIVE); URINE SPECIFIC GRAVITY 1.016; UROBILINOGEN,URINE NEGATIVE mg/dL (<2.0)
[2017-01-24] MEDS ORDERED: CEPHALEXIN 500 MG CAPSULE PO ONE (06:39)
[2017-01-24 07:06] VITALS: BP 110/78
== END 2017-01-24 07:05 | disposition home or self-care (01) ==
LOC: ER 04:27
DX: O23.12 Infections of bladder in pregnancy, second trimester (principal); N30.00 Acute cystitis without hematuria; M54.9 Dorsalgia, unspecified; R10.9 Unspecified abdominal pain; Z3A.17 17 weeks gestation of pregnancy
CPT/HCPCS: 36415; 80053; 81001; 83690; 85025; 99283

== ENCOUNTER 2017-03-02 13:22 | Outpatient (CLI) | payer MEDICAID ==
[2017-03-02 14:29] LABS: APPEARANCE,URINE SLIGHTLY-CLOUDY; BILIRUBIN,URINE NEGATIVE (NEGATIVE); GLUCOSE, URINE NEGATIVE (NEGATIVE); KETONES,URINE TRACE mg/dL (NEGATIVE); LEUKOCYTE ESTERASE,URINE NEGATIVE (NEGATIVE); NITRITE,URINE NEGATIVE (NEGATIVE); PROTEIN,URINE NEGATIVE (NEGATIVE); UROBILINOGEN,URINE NEGATIVE mg/dL (<2.0)
[2017-03-02] MEDS ORDERED: RINGERS SOLUTION,LACTATED 1,000 ML IV PRN (14:38)
[2017-03-02 14:51] LABS: URINE BARBITURATES SCREEN NEGATIVE; URINE METHADONE SCREEN NEGATIVE; URINE OPIATES LOW NEGATIVE; URINE PHENCYCLIDINE SCREEN NEGATIVE
--- NOTE | 2017-03-02 15:49 | RADIOLOGY REPORT (SQ) ---
EXAM DESCRIPTION: U/S OB LIMITED COMPLETED DATE/TIME: 03/02/2017 3:40 pm REASON FOR STUDY: abd cramping, previa / CL and placental location COMPARISON: None. TECHNIQUE: Limited transvaginal and transabdominal grayscale ultrasound for evaluation of specific r equested obstetrical parameters. LIMITATIONS: None. FINDINGS: CERVICAL LENGTH: 4.9 cm Closed. MONICA: Normal. FHR: 152 beats per minute. PRESENTATION: Transverse OTHER: Anterior placenta with complete asymmetric previa. IMPRESSION: LIMITED OBSTETRICAL ULTRASOUND WITH MEASURED PARAMETERS DELINEATED ABOVE. Trimester of : Second trimester - 13 weeks 1 day to 27 weeks 6 days. TECHNICAL DOCUMENTATION: JOB ID: [id number] [employer]- All Rights Reserved
== END 2017-03-02 16:11 | disposition home or self-care (01) ==
LOC: LC 13:22
PROVIDERS: ATTEND Obstetrics & Gynecology
PROC: 4A1HXCZ Monitoring of Products of Conception, Cardiac Rate, External Approach (ICD-10-PCS; principal; 2017-03-02)
DX: O44.02 Complete placenta previa NOS or without hemorrhage, second trimester (principal); O26.892 Other specified pregnancy related conditions, second trimester; R10.9 Unspecified abdominal pain; Z3A.23 23 weeks gestation of pregnancy
CPT/HCPCS: 76815; 80307; 81001

== ENCOUNTER 2017-05-02 15:04 | Outpatient (CLI) | payer MEDICAID ==
--- NOTE | 2017-05-02 15:26 | L&D Progress Notes ---
PROGRESS NOTES Datetime Report Generated by CPN: 05/02/2017 15:26 PROGRESS NOTE Comment: here for labor check with c/o of hemorrhoid, no ob complaints, using prep h, hemorrhoid small, stool softners, continue prep h and hydrocortisone SIGNATURE SIGNATURE: [id number] Assignment: Paula Del Castillo MD Signature: with User ID: [email or web address] : with User ID: [email or web address]
[2017-05-02 15:47] LABS: APPEARANCE,URINE CLOUDY; BILIRUBIN,URINE NEGATIVE (NEGATIVE); GLUCOSE, URINE 50 mg/dL (NEGATIVE); KETONES,URINE NEGATIVE (NEGATIVE); LEUKOCYTE ESTERASE,URINE SMALL (NEGATIVE); NITRITE,URINE NEGATIVE (NEGATIVE); PROTEIN,URINE 100 mg/dL (NEGATIVE)
[2017-05-02 15:48] LABS: COLOR,URINE DARK YELLOW
--- NOTE | 2017-05-02 15:48 | Non Stress Test Report ---
Non Stress Test Datetime Report Generated by CPN: 05/02/2017 15:48 DEMOGRAPHIC EGA NST: 32.0 INDICATION Indication for Study: Ordered by Provider MONITORING Monitor Explained: Monitor Explained; Test Explained; Patient Verbalized Understanding Time on Monitor: 05/02/2017 15:20 Time off Monitor: 05/02/2017 15:46 NST Duration: 26 NST INTERVENTIONS NST Interventions: PO Hydration Physician Notified NST: J. Smith, CNM BABY A: [id number] BABY A Movement : Present Contraction Frequency : none FHR Baseline : 140 Accelerations : 15X15 Decelerations : None Variability : Moderate 6-25bpm NST Review: Meets Criteria for Reactive NST NST Review and Verified By : Valeri Acevedo RNC NST Results: Reactive NST REPORT Report Trigger: Send Report
[2017-05-02 16:05] LABS: URINE AMPHETAMINES SCREEN NEGATIVE; URINE BARBITURATES SCREEN NEGATIVE; URINE BENZODIAZEPINES SCREEN NEGATIVE; URINE COCAINE SCREEN NEGATIVE; URINE MARIJUANA (THC) SCREEN NEGATIVE; URINE METHADONE SCREEN NEGATIVE; URINE PHENCYCLIDINE SCREEN NEGATIVE
== END 2017-05-02 15:55 | disposition home or self-care (01) ==
LOC: LC 15:04
PROVIDERS: ATTEND Obstetrics & Gynecology
PROC: 4A1HXCZ Monitoring of Products of Conception, Cardiac Rate, External Approach (ICD-10-PCS; principal; 2017-05-02)
DX: O22.43 Hemorrhoids in pregnancy, third trimester (principal); O99.613 Diseases of the digestive system complicating pregnancy, third trimester; K59.00 Constipation, unspecified; Z3A.32 32 weeks gestation of pregnancy
CPT/HCPCS: 59025; 80307; 81001

== ENCOUNTER → 2017-05-16 | Outpatient (CLI) | payer MEDICAID ==
[2017-05-16 18:56] LABS: AMORPHOUS SEDIMENT,URINE TRACE /HPF; APPEARANCE,URINE CLOUDY; BILIRUBIN,URINE NEGATIVE (NEGATIVE); COLOR,URINE YELLOW; GLUCOSE, URINE NEGATIVE (NEGATIVE); KETONES,URINE NEGATIVE (NEGATIVE); LEUKOCYTE ESTERASE,URINE LARGE (NEGATIVE); NITRITE,URINE NEGATIVE (NEGATIVE); PROTEIN,URINE 30 mg/dL (NEGATIVE); URINE SPECIFIC GRAVITY 1.021; UROBILINOGEN,URINE NEGATIVE mg/dL (<2.0)
--- NOTE | 2017-05-16 19:06 | Non Stress Test Report ---
Non Stress Test Datetime Report Generated by CPN: 05/16/2017 19:05 DEMOGRAPHIC EGA NST: 34.0 INDICATION Indication for Study: Other Indication for Study (NST) Other: labor check VITAL SIGNS Temperature - NST: 98.0 Pulse - NST: 87 RESP - NST: 14 NBPSYS NST: 106 NBPDIA NST: 63 MONITORING Monitor Explained: Monitor Explained; Test Explained; Patient Verbalized Understanding Time on Monitor: 05/16/2017 18:18 Time off Monitor: 05/16/2017 19:01 NST Duration: 43 NST INTERVENTIONS NST Interventions: PO Hydration Physician Notified NST: Dr Mathur BABY A: [id number] BABY A Movement : Present Contraction Frequency : 0 FHR Baseline : 135 Accelerations : 15X15 Decelerations : None Variability : Moderate 6-25bpm NST Review: Meets Criteria for Reactive NST NST Review and Verified By : Joni Coelho RN NST Results: Reactive NST REPORT Report Trigger: Send Report
[2017-05-16 19:07] LABS: URINE AMPHETAMINES SCREEN NEGATIVE; URINE BARBITURATES SCREEN NEGATIVE; URINE BENZODIAZEPINES SCREEN NEGATIVE; URINE COCAINE SCREEN NEGATIVE; URINE MARIJUANA (THC) SCREEN NEGATIVE; URINE METHADONE SCREEN NEGATIVE; URINE PHENCYCLIDINE SCREEN NEGATIVE
== END ==
LOC: LC 17:59
PROVIDERS: ATTEND Obstetrics & Gynecology
PROC: 4A1HXCZ Monitoring of Products of Conception, Cardiac Rate, External Approach (ICD-10-PCS; principal; 2017-05-16)
DX: O47.03 False labor before 37 completed weeks of gestation, third trimester (principal); Z3A.34 34 weeks gestation of pregnancy
CPT/HCPCS: 59025; 80307; 81001

== ENCOUNTER → 2017-05-22 | Outpatient (CLI) | payer MEDICAID ==
--- NOTE | 2017-05-22 13:01 | RADIOLOGY REPORT (SQ) ---
EXAM DESCRIPTION: ANKLE RIGHT COMPLETE COMPLETED DATE/TIME: 05/22/2017 12:12 pm REASON FOR STUDY: PAIN IN RIGHT ANKLE AND JOINTS OF RIGHT FOOT M25.571 PAIN IN RIGHT ANKLE AND JOIN TS OF RIGHT FOOT COMPARISON: None. NUMBER OF VIEWS: Three views. TECHNIQUE: AP, lateral, and oblique radiographic images acquired of the right ankle. LIMITATIONS: None. FINDINGS: MINERALIZATION: Normal. BONES: No acute fracture or dislocation. No worrisome bone lesions. JOINTS: No effusions. SOFT TISSUES: No soft tissue swelling. No foreign body. OTHER: No other significant finding. IMPRESSION: NEGATIVE STUDY OF THE RIGHT ANKLE. NO RADIOGRAPHIC EVIDENCE OF ACUTE INJURY. TECHNICAL DOCUMENTATION: JOB ID: [id number] [employer]- All Rights Reserved Reading location - IP/workstation name: [email or web address]
== END ==
LOC: OD 12:01
PROVIDERS: ATTEND Specialist
DX: O9A.219 Injury, poisoning and certain other consequences of external causes complicating pregnancy, unspecified trimester (principal); M25.571 Pain in right ankle and joints of right foot; Z3A.00 Weeks of gestation of pregnancy not specified; W19.XXXA Unspecified fall, initial encounter; Y93.9 Activity, unspecified; Y92.9 Unspecified place or not applicable; Y99.9 Unspecified external cause status

== ENCOUNTER 2017-06-13 10:21 | Outpatient (CLI) | payer MEDICAID ==
[2017-06-13 11:04] LABS: APPEARANCE,URINE CLOUDY; BILIRUBIN,URINE NEGATIVE (NEGATIVE); COLOR,URINE AMBER; GLUCOSE, URINE 50 mg/dL (NEGATIVE); KETONES,URINE NEGATIVE (NEGATIVE); LEUKOCYTE ESTERASE,URINE TRACE (NEGATIVE); NITRITE,URINE NEGATIVE (NEGATIVE); PROTEIN,URINE 30 mg/dL (NEGATIVE)
--- NOTE | 2017-06-13 11:12 | Non Stress Test Report ---
Non Stress Test Datetime Report Generated by CPN: 06/13/2017 11:11 DEMOGRAPHIC EGA NST: 38.0 INDICATION Indication for Study: Other Indication for Study (NST) Other: LC MONITORING Monitor Explained: Monitor Explained; Test Explained; Patient Verbalized Understanding Time on Monitor: 06/13/2017 10:36 Time off Monitor: 06/13/2017 11:07 NST Duration: 31 NST INTERVENTIONS NST Interventions: PO Hydration; Reposition Patient Physician Notified NST: Dr Juarez BABY A: [id number] BABY A Movement : Present Contraction Frequency : 0 FHR Baseline : 135 Accelerations : 15X15 Decelerations : None Variability : Moderate 6-25bpm NST Review: Meets Criteria for Reactive NST NST Review and Verified By : Sydnie Camp RNC NST Results: Reactive NST REPORT Report Trigger: Send Report
[2017-06-13 11:25] LABS: URINE AMPHETAMINES SCREEN NEGATIVE; URINE BARBITURATES SCREEN NEGATIVE; URINE BENZODIAZEPINES SCREEN NEGATIVE; URINE COCAINE SCREEN NEGATIVE; URINE MARIJUANA (THC) SCREEN NEGATIVE; URINE METHADONE SCREEN NEGATIVE; URINE PHENCYCLIDINE SCREEN NEGATIVE
== END 2017-06-13 11:14 | disposition home or self-care (01) ==
LOC: LC 10:21
PROVIDERS: ATTEND Student in an Organized Health Care Education/Training Program
PROC: 4A1HXCZ Monitoring of Products of Conception, Cardiac Rate, External Approach (ICD-10-PCS; principal; 2017-06-13)
DX: O47.1 False labor at or after 37 completed weeks of gestation (principal); O99.89 Other specified diseases and conditions complicating pregnancy, childbirth and the puerperium; M54.9 Dorsalgia, unspecified; Z3A.38 38 weeks gestation of pregnancy
CPT/HCPCS: 59025; 80307; 81001

== ENCOUNTER 2017-06-13 23:55 | Outpatient (CLI) | payer MEDICAID ==
[2017-06-14 00:40] LABS: APPEARANCE,URINE SLIGHTLY-CLOUDY; BILIRUBIN,URINE NEGATIVE (NEGATIVE); COLOR,URINE YELLOW; GLUCOSE, URINE 50 mg/dL (NEGATIVE); KETONES,URINE NEGATIVE (NEGATIVE); LEUKOCYTE ESTERASE,URINE MODERATE (NEGATIVE); NITRITE,URINE NEGATIVE (NEGATIVE); PROTEIN,URINE 30 mg/dL (NEGATIVE); URINE SPECIFIC GRAVITY 1.012; UROBILINOGEN,URINE NEGATIVE mg/dL (<2.0)
[2017-06-14 01:29] LABS: URINE AMPHETAMINES SCREEN NEGATIVE; URINE BARBITURATES SCREEN NEGATIVE; URINE BENZODIAZEPINES SCREEN NEGATIVE; URINE COCAINE SCREEN NEGATIVE; URINE MARIJUANA (THC) SCREEN NEGATIVE; URINE METHADONE SCREEN NEGATIVE; URINE PHENCYCLIDINE SCREEN NEGATIVE
--- NOTE | 2017-06-14 02:58 | Non Stress Test Report ---
Non Stress Test Datetime Report Generated by CPN: 06/14/2017 02:58 DEMOGRAPHIC EGA NST: 38.1 INDICATION Indication for Study: Ordered by Provider; Other Indication for Study (NST) Other: LC MONITORING Monitor Explained: Monitor Explained; Test Explained; Patient Verbalized Understanding Time on Monitor: 06/14/2017 00:19 Time off Monitor: 06/14/2017 01:38 NST Duration: 79 NST INTERVENTIONS NST Interventions: PO Hydration Physician Notified NST: llamas BABY A: [id number] BABY A Movement : Present Contraction Frequency : irregular FHR Baseline : 140 Accelerations : 15X15 Decelerations : None Variability : Moderate 6-25bpm NST Review: Meets Criteria for Reactive NST NST Review and Verified By : Gisela Lee NST Results: Reactive NST REPORT Report Trigger: Send Report
== END 2017-06-14 01:45 | disposition home or self-care (01) ==
LOC: LC 23:55
PROVIDERS: ATTEND Student in an Organized Health Care Education/Training Program
PROC: 4A1HXCZ Monitoring of Products of Conception, Cardiac Rate, External Approach (ICD-10-PCS; principal; 2017-06-13)
DX: O47.1 False labor at or after 37 completed weeks of gestation (principal); Z3A.38 38 weeks gestation of pregnancy
CPT/HCPCS: 59025; 80307; 81001

== ENCOUNTER 2017-06-15 20:05 | Observation (INO) | payer MEDICAID ==
[2017-06-15 20:40] LABS: APPEARANCE,URINE SLIGHTLY-CLOUDY; BILIRUBIN,URINE NEGATIVE (NEGATIVE); COLOR,URINE YELLOW; GLUCOSE, URINE 50 mg/dL (NEGATIVE); KETONES,URINE TRACE mg/dL (NEGATIVE); LEUKOCYTE ESTERASE,URINE TRACE (NEGATIVE); NITRITE,URINE NEGATIVE (NEGATIVE); PROTEIN,URINE 30 mg/dL (NEGATIVE); URINE SPECIFIC GRAVITY 1.021
[2017-06-15] MEDS ORDERED: RINGERS SOLUTION,LACTATED 1,000 ML IV ONE (20:54)
[2017-06-15] MEDS ORDERED: RINGERS SOLUTION,LACTATED 1,000 ML IV PRN (20:54)
[2017-06-15 20:55] LABS: URINE AMPHETAMINES SCREEN NEGATIVE; URINE BARBITURATES SCREEN NEGATIVE; URINE BENZODIAZEPINES SCREEN NEGATIVE; URINE COCAINE SCREEN NEGATIVE; URINE MARIJUANA (THC) SCREEN NEGATIVE; URINE METHADONE SCREEN NEGATIVE; URINE PHENCYCLIDINE SCREEN NEGATIVE
--- NOTE | 2017-06-15 21:12 | Admission Physical ---
Datetime Report Generated by CPN: 06/15/2017 21:12 CURRENT ADMISSION Chief Complaint: Other Chief Complaint Other: vaginal spotting Indication for Induction: Not Applicable Admit Impression : Term, Intrauterine ; No Active Labor; Intact Membranes Admit Plan: Admit to Unit; Observation/Evaluation ALLERGIES Medication Allergies: No Medication Allergies: No Known Allergies (06/15/2017) Latex: No Latex Allergies Food Allergies: n/a Environmental Allergies: n/a OBSTETRICAL HISTORY EDC: 06/27/2017 00:00 : 3 Para: 1 Term: 1 : 0 SAB: 1 IAB: 0 Ectopic: 0 Livin Cesareans: 0 VBACs: 0 Multiple Births: 0 Gestational Diabetes: No Rh Sensitization: No Incompetent Cervix: No ANUM: No Infertility: No ART Treatment: No Uterine Anomaly: No IUGR: No Hx Previous C/S: No Macrosomia: No Hx Loss/Stillborn: No PIH: No Hx : No Placenta Previa/Abruption: Yes Depression/PP Depression: No PTL/PROM: No Post Hemorrhage: No Current Procedures: Ultrasound; Amniocentesis/Genetic Obstetrical History Comments: G1-38wk G2- current -complete previa as of 03/02/17 SEE RECORDS Alcohol: No Marijuana : No Cocaine: No Other Illicit Drugs: No Cigarettes: Never Smoker. 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 Surgery: No Heart Disease: No Hosp/Surgery: No Autoimmune Disorder: No Anesthetic Complications: No Kidney Disease: Yes Abnormal Pap Smear: No Neuro/Epilepsy: No Psychiatric Disorders: No Other Medical Diseases: No Hepatitis/Liver Disease: No Significant Family History: No Varicosities/Phlebitis: No Trauma/Violence : No Thyroid Dysfunction: No Medical History Comments: frequent uti's, Childbirth INFECTIOUS HISTORY Gonorrhea: No Genital Herpes: No Chlamydia: No Tuberculosis: No Syphilis: No Hepatitis: No HIV/AIDS Exposure: No Rash or Viral Illness: No HPV: No PHYSICAL EXAM General: Normal HEENT: Normal Neurologic: Normal Thyroid: Deferred Heart: Normal Lungs: Normal Breast: Deferred Back: Normal Abdomen: Normal Genitourinary Exam: Normal Extremities: Normal DTRs: Normal Pelvic Type: Adequate Physical Exam Comments: 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 She had one episode similar on Friday evening. 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 Anteroir placenta 1.7cm from cervix. Pt reports MFM ok for vaginal delivery and reports that she was told that she needed to deliver at 39wks. Not in MFM records. Will contact MFM from office next week - or perhaps have patient seen at [facility] in am at [place] office. GBS negative. Will admit for observation and pad count. move to delivery if needed. PLANS FOR LABOR AND DELIVERY Labor and Delivery: None Pain Management: Natural; Medications; Epidural Feeding Preference: Breast Benefit of Breast Feed Discussed: Yes Circumcision: Yes INFORMED CONSENT Informed Consent Obtained: Vaginal Delivery; Risks, Benefits and Alternatives Discussed Signature: with User ID: [email or web address]
[2017-06-15 22:01] LABS: ABSOLUTE EOSINOPHILS # (AUTO) 0.1 10^3/uL (0.0-0.6); ABSOLUTE LYMPHOCYTES (AUTO) 2.2 10^3/uL (0.5-4.7); ABSOLUTE MONOCYTES (AUTO) 0.8 10^3/uL (0.1-1.4); ABSOLUTE NEUT (AUTO) 6.8 10^3/uL (1.7-8.2); BASOPHILS % (AUTO) 0.3 % (0-2); EOSINOPHILS % (AUTO) 1.5 % (0-6); HEMATOCRIT 32.5 % (36.0-47.0); LYMPHOCYTES % (AUTO) 22.2 % (13-45); MEAN CORPUSCULAR HEMOGLOBIN 29.1 pg (27.0-33.4); MEAN CORPUSCULAR HGB CONC 33.8 g/dL (32.0-36.0); MEAN CORPUSCULAR VOLUME 86 fl (80-97); MONOCYTES % (AUTO) 7.7 % (3-13); PLATELET COUNT 257 10^3/uL (150-450); RED BLOOD COUNT 3.78 10^6/uL (3.72-5.28); RED CELL DISTRIBUTION WIDTH 13.8 % (11.5-14.0); SEGMENTED NEUTROPHILS % (AUTO) 68.3 % (42-78); TOTAL CELLS COUNTED % (AUTO) 100 %
[2017-06-15 22:15] LABS: INTERNATIONAL RATION (INR) 0.93
[2017-06-16 04:28] LABS: FETAL RBC COUNT 0
[2017-06-16 04:32] LABS: KB INTERPRETATION NEGATIVE (NEGATIVE)
--- NOTE | 2017-06-16 04:56 | PDOC DISCHARGE SUMMARY ---
General - Admit/Disc Date/PCP Admission Date/Primary Care Provider: 06/15/17 20:53 JOCELYNE BERNAL MD Discharge Date: 06/16/17 - Discharge Diagnosis (1) Low lying placenta, antepartum Is this a current diagnosis for this admission?: Yes Summary: Spotting several times over the weekend. Small amount spotting last evening and patient was admitted for evaluation and monitoring. Placenta last checked in may with 1.7cm from cervix. Was supposed to have length from cervix ciera at [facility]FM on 06/09 but not in note. Admitted for eval to monitor bleeding. (2) Anemia Is this a current diagnosis for this admission?: Yes Summary: Transfusion - Additional Information Discharge Activity: Activity As Tolerated, No Lifting Over 10 Pounds, Pelvic Rest Home Medications: Pnv No.95/Ferrous Fum/Folic AC [ Multivitamin Tablet] 1 each PO DAILY History of Present Illness Patient complains of: vaginal bleeding History of Present Illness: LETICIA NOBLE is a 27 year old female Hospital Course Hospital Course: Monitored ln L&D. Cat I FHRTs. minimal contractions. No vaginal bleeding throughout the evening. Physical Exam - Physical Exam Vital Signs: Intake & Output 06/14/17 06/15/17 06/16/17 06:59 06:59 06:59 Weight 76.5 kg General appearance: PRESENT: no acute distress Head exam: PRESENT: atraumatic, normocephalic Respiratory exam: PRESENT: clear to auscultation marcela, symmetrical, unlabored Cardiovascular exam: PRESENT: RRR. ABSENT: diastolic murmur, rubs, systolic murmur Pulses: PRESENT: normal dorsalis pedis pul, +2 pedal pulses bilateral Vascular exam: PRESENT: normal capillary refill GI/Abdominal exam: PRESENT: normal bowel sounds, soft. ABSENT: distended, guarding, mass, organolmegaly, rebound, tenderness Rectal exam: PRESENT: deferred Extremities exam: PRESENT: full ROM. ABSENT: calf tenderness, clubbing, pedal edema Neurological exam: PRESENT: alert, awake, oriented to person, oriented to place , oriented to time, oriented to situation, CN II-XII grossly intact. ABSENT: motor sensory deficit Psychiatric exam: PRESENT: appropriate affect, normal mood. ABSENT: homicidal ideation, suicidal ideation Result Laboratory Results: 06/15/17 21:37 06/15/17 06/15/17 20:19 21:37 WBC 10.0 RBC 3.78 Hgb 11.0 L Hct 32.5 L MCV 86 MCH 29.1 MCHC 33.8 RDW 13.8 Plt Count 257 Seg Neutrophils % 68.3 Lymphocytes % 22.2 Monocytes % 7.7 Eosinophils % 1.5 Basophils % 0.3 Absolute Neutrophils 6.8 Absolute Lymphocytes 2.2 Absolute Monocytes 0.8 Absolute Eosinophils 0.1 Absolute Basophils 0.0 Urine Color YELLOW Urine Appearance SLIGHTLY-CLOUDY Urine pH 6.0 Ur Specific [place] 1.021 Urine Protein 30 H Urine Glucose (UA) 50 H Urine Ketones TRACE H Urine Blood LARGE H Urine Nitrite NEGATIVE Ur Leukocyte Esterase TRACE H Status: Imported from PACS Plan Discharge Plan: Discharge to home Time Spent: Less than 30 Minutes
--- NOTE | 2017-06-16 05:17 | Non Stress Test Report ---
Non Stress Test Datetime Report Generated by CPN: 06/16/2017 05:17 DEMOGRAPHIC EGA NST: 38.3 INDICATION Indication for Study: Ordered by Provider MONITORING Monitor Explained: Monitor Explained; Test Explained; Patient Verbalized Understanding Time on Monitor: 06/16/2017 03:40 Time off Monitor: 06/16/2017 04:00 NST Duration: 20 NST INTERVENTIONS NST Interventions: PO Hydration; IV Fluids; Reposition Patient Physician Notified NST: Juarez BABY A: [id number] BABY A Movement : Present Contraction Frequency : occasional FHR Baseline : 125 Accelerations : 15X15 Decelerations : None Variability : Moderate 6-25bpm NST Review: Meets Criteria for Reactive NST NST Review: Meets Criteria for Reactive NST NST Review and Verified By : kathy [place] Results: Reactive NST REPORT Report Trigger: Send Report
== END 2017-06-16 05:50 | disposition home or self-care (01) ==
LOC: LC 20:05 → LR 20:53
PROVIDERS: ADMIT Student in an Organized Health Care Education/Training Program; ATTEND Student in an Organized Health Care Education/Training Program
PROC: 4A0HXCZ Measurement of Products of Conception, Cardiac Rate, External Approach (ICD-10-PCS; principal; 2017-06-15)
DX: O46.93 Antepartum hemorrhage, unspecified, third trimester (principal); O47.1 False labor at or after 37 completed weeks of gestation; O26.893 Other specified pregnancy related conditions, third trimester; E86.0 Dehydration; O35.1XX0 Maternal care for (suspected) chromosomal abnormality in fetus, not applicable or unspecified; Z3A.38 38 weeks gestation of pregnancy
CPT/HCPCS: 36415; 59025; 80307; 81005; 85025; 85460; 85610

== ENCOUNTER 2017-06-16 22:10 | Inpatient (IN) | payer MEDICAID ==
[2017-06-16 22:46] LABS: APPEARANCE,URINE CLEAR; BILIRUBIN,URINE NEGATIVE (NEGATIVE); COLOR,URINE YELLOW; GLUCOSE, URINE NEGATIVE (NEGATIVE); KETONES,URINE TRACE mg/dL (NEGATIVE); LEUKOCYTE ESTERASE,URINE TRACE (NEGATIVE); NITRITE,URINE NEGATIVE (NEGATIVE); PROTEIN,URINE 30 mg/dL (NEGATIVE); URINE SPECIFIC GRAVITY 1.018; UROBILINOGEN,URINE NEGATIVE mg/dL (<2.0)
[2017-06-16 23:08] LABS: URINE AMPHETAMINES SCREEN NEGATIVE; URINE BARBITURATES SCREEN NEGATIVE; URINE BENZODIAZEPINES SCREEN NEGATIVE; URINE COCAINE SCREEN NEGATIVE; URINE MARIJUANA (THC) SCREEN NEGATIVE; URINE METHADONE SCREEN NEGATIVE; URINE PHENCYCLIDINE SCREEN NEGATIVE
[2017-06-17] MEDS ORDERED: RINGERS SOLUTION,LACTATED 1,000 ML IV PRN (01:01)
[2017-06-17] MEDS ORDERED: RINGERS SOLUTION,LACTATED 1,000 ML IV ONE (01:01)
[2017-06-17 01:22] LABS: ABSOLUTE LYMPHOCYTES (AUTO) 1.3 10^3/uL (0.5-4.7); ABSOLUTE MONOCYTES (AUTO) 0.6 10^3/uL (0.1-1.4); ABSOLUTE NEUT (AUTO) 12.5 10^3/uL (1.7-8.2); BASOPHILS % (AUTO) 0.3 % (0-2); EOSINOPHILS % (AUTO) 0.1 % (0-6); HEMATOCRIT 33.2 % (36.0-47.0); LYMPHOCYTES % (AUTO) 9.3 % (13-45); MEAN CORPUSCULAR HEMOGLOBIN 28.4 pg (27.0-33.4); MEAN CORPUSCULAR HGB CONC 33.1 g/dL (32.0-36.0); MEAN CORPUSCULAR VOLUME 86 fl (80-97); MONOCYTES % (AUTO) 4.2 % (3-13); PLATELET COUNT 248 10^3/uL (150-450); RED BLOOD COUNT 3.86 10^6/uL (3.72-5.28); RED CELL DISTRIBUTION WIDTH 13.9 % (11.5-14.0); SEGMENTED NEUTROPHILS % (AUTO) 86.1 % (42-78); TOTAL CELLS COUNTED % (AUTO) 100 %; WHITE BLOOD COUNT 14.5 10^3/uL (4.0-10.5)
[2017-06-17] MEDS ORDERED: FENTANYL/BUPIVACAINE/NS/PF 200 MCG/100 ML RTUINJ EPI ONE (01:33)
[2017-06-17] MEDS ORDERED: EPHEDRINE SULFATE INJ 50 MG/1 ML AMPULE ONE (01:33)
[2017-06-17] MEDS ORDERED: BUPIVACAINE HCL 0.25 % INJ/PF (2.5 MG/1 ML) 30 ML VIAL ONE (01:33)
[2017-06-17] MEDS ORDERED: LIDOCAINE 1% INJ-PF (10 MG/ML) 30 ML SDV ONE (01:34)
[2017-06-17] MEDS ORDERED: MISOPROSTOL 0.2 MG TABLET ONE (01:34)
[2017-06-17] MEDS ORDERED: OXYTOCIN/NORMAL SALINE 20 UNIT/1,000 ML RTUINJ ONE (01:35)
[2017-06-17] MEDS ORDERED: BENZOIN/ALOE VERA/STORAX/TOLU TINCTURE 60 ML TP PRN (02:31)
[2017-06-17] MEDS ORDERED: FENTANYL/BUPIVACAINE/NS/PF 200 MCG/100 ML RTUINJ EPI PRN (02:31)
[2017-06-17] MEDS ORDERED: BUPIVACAINE HCL 0.25 % INJ/PF (2.5 MG/1 ML) 30 ML VIAL INFIL ONE (02:31)
[2017-06-17] MEDS ORDERED: EPHEDRINE SULFATE INJ 50 MG/1 ML AMPULE IV ONE (02:31)
[2017-06-17] MEDS ORDERED: EPHEDRINE SULFATE INJ 50 MG/1 ML AMPULE IV PRN (02:31)
--- NOTE | 2017-06-17 06:13 | Admission Physical ---
Datetime Report Generated by CPN: 06/17/2017 06:13 CURRENT ADMISSION Chief Complaint: Uterine Contractions; Vaginal Bleeding Chief Complaint Other: vaginal spotting Indication for Induction: Not Applicable Admit Impression : Term, Intrauterine ; Active Labor Admit Plan: Admit to Unit; Initiate Labor Augmentation Protocol ALLERGIES Medication Allergies: No Medication Allergies: No Known Allergies (06/15/2017) Latex: No Latex Allergies Food Allergies: n/a Environmental Allergies: n/a OBSTETRICAL HISTORY EDC: 06/27/2017 00:00 : 3 Para: 1 Term: 1 : 0 SAB: 1 IAB: 0 Ectopic: 0 Livin Cesareans: 0 VBACs: 0 Multiple Births: 0 Gestational Diabetes: No Rh Sensitization: No Incompetent Cervix: No ANUM: No Infertility: No ART Treatment: No Uterine Anomaly: No IUGR: No Hx Previous C/S: No Macrosomia: No Hx Loss/Stillborn: No PIH: No Hx : No Placenta Previa/Abruption: Yes Depression/PP Depression: No PTL/PROM: No Post Hemorrhage: No Current Procedures: Ultrasound; Amniocentesis/Genetic Obstetrical History Comments: G1-38wk G2- current -complete previa as of 03/02/17- placenta anterior 1.7cm away from internal os as of 05/14/17 SEE RECORDS Alcohol: No Marijuana : No Cocaine: No Other Illicit Drugs: No Cigarettes: Never Smoker. [id number] MEDICAL HISTORY Diabetes: No Blood Transfusion: No Pulmonary Disease (Asthma, TB): No Breast Disease: No Hypertension: No Cnc Maintenance Technician Surgery: No Heart Disease: No Hosp/Surgery: Yes Autoimmune Disorder: No Anesthetic Complications: No Kidney Disease: Yes Abnormal Pap Smear: No Neuro/Epilepsy: No Psychiatric Disorders: No Other Medical Diseases: No Hepatitis/Liver Disease: No Significant Family History: No Varicosities/Phlebitis: No Trauma/Violence : No Thyroid Dysfunction: No Medical History Comments: frequent uti's, Childbirth INFECTIOUS HISTORY Gonorrhea: No Genital Herpes: No Chlamydia: No Tuberculosis: No Syphilis: No Hepatitis: No HIV/AIDS Exposure: No Rash or Viral Illness: No HPV: No PHYSICAL EXAM General: Normal HEENT: Normal Neurologic: Normal Thyroid: Normal Heart: Normal Lungs: Normal Breast: Normal Back: Normal Abdomen: Normal Genitourinary Exam: Normal Extremities: Normal DTRs: Normal Pelvic Type: Adequate Physical Exam Comments: 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 Patient has been getting monitoring of low lying placenta and has been cleared for vaginal delivery per patient. Bleeding has been normal for labor and has been carefully monitored. Will attempt vaginal delivery with low threshold for c/section. PLANS FOR LABOR AND DELIVERY Labor and Delivery: None Pain Management: Natural; Medications; Epidural Feeding Preference: Breast Benefit of Breast Feed Discussed: Yes Circumcision: Yes INFORMED CONSENT Informed Consent Obtained: Vaginal Delivery; Risks, Benefits and Alternatives Discussed Signature: with User ID: [email or web address]
--- NOTE | 2017-06-17 10:01 | L&D Progress Notes ---
PROGRESS NOTES Datetime Report Generated by CPN: 06/17/2017 10:00 PROGRESS NOTE Impression: Normal Progression of Labor Procedures: Sterile Vag Exam Plan: Continue Present Management Informed Consent Obtained: Vaginal Delivery; Risks, Benefits and Alternatives Discussed Informed Consent Obtained: Vaginal Delivery; Risks, Benefits and Alternatives Discussed Vital Signs : Reviewed; Within Normal Limits Comment: S: reports increased perineal pressure O: VSS, cervix and contractions as stated, Cat I tracing A: IUP @ 38w4d in labor-stable, SROM with exam-Large amount of clear amniotic fluid P: reassess as clinically indicated or earlier prn. Consider pit augment as needed, maternal HR monitoring added to tracing. VAGINAL EXAM Dilatation: 8 Dilatation: 4 Effacement: 100 Effacement: 75 Station: -1 Station: -1 Contractions: 2-4 Contractions: rare MEMBRANES Pooling: Negative Membranes: Ruptured Membranes: Intact Membranes: Ruptured Amniotic Fluid Color: Clear FETUS A FHR - Baseline: 140 Monitoring: External US Variability: Moderate 6-25bpm Accelerations: 15X15 FHR Category: Category I : 38.4 Estimated Weight (gm): 3900 Estimated Weight (gm): 3232 Presentation: Vertex Presentation: Vertex SIGNATURE SIGNATURE: 10,[id number];14,[id number];13,[id number] SIGNATURE: 13,1267295386;14,6250693651;10,[id number] SIGNATURE: 10,8315753188;14,3768344729;13,3318855546 SIGNATURE: 13,3052302607;14,5784717796;10,[id number] SIGNATURE: 10,4340729852;14,5524038957 SIGNATURE: 14,1138373319;10,3446939882 SIGNATURE: 10,4664513851;14,7577656345 SIGNATURE: 14,4311013980;10,[id number] Assignment: Radha Mathur MD Signature: with User ID: [email or web address] : with User ID: [email or web address]
[2017-06-17] MEDS ORDERED: PROMETHAZINE HCL 25 MG SUPP.RECT PR PRN (11:08)
[2017-06-17] MEDS ORDERED: DIBUCAINE 1% OINTMENT 28 GM TP PRN (11:08)
[2017-06-17] MEDS ORDERED: PROMETHAZINE HCL INJ 25 MG/1 ML VIAL IV PRN (11:08)
[2017-06-17] MEDS ORDERED: PSEUDOEPHEDRINE HCL 30 MG TABLET PO PRN (11:08)
[2017-06-17] MEDS ORDERED: BENZOCAINE/MENTHOL AEROSOL SPRAY 56 ML TOP PRN (11:08)
[2017-06-17] MEDS ORDERED: MEASLES,MUMPS&RUBELLA VACC/PF 0.5 ML VIAL SUBCUT PRN (11:08)
[2017-06-17] MEDS ORDERED: OXYTOCIN/NORMAL SALINE 20 UNIT/1,000 ML RTUINJ IV PRN (11:08)
[2017-06-17] MEDS ORDERED: PROMETHAZINE HCL 25 MG TABLET PO PRN (11:08)
[2017-06-17] MEDS ORDERED: ACETAMINOPHEN WITH CODEINE #3 TABLET PO PRN ×2 (11:08)
[2017-06-17] MEDS ORDERED: GLYCERIN/WITCH HAZEL LEAF 1 EACH MED..PAD TP PRN (11:08)
[2017-06-17] MEDS ORDERED: DIPH/PERTUSS(ACELL)/TETANUS VAC/PF 0.5 ML SYR (>=10YO) IM PRN (11:08)
[2017-06-17] MEDS ORDERED: DIPHENHYDRAMINE HCL 25 MG CAPSULE PO PRN (11:08)
[2017-06-17] MEDS ORDERED: MAGNESIUM HYDROXIDE SUSP 30 ML UDCUP PO PRN (11:08)
[2017-06-17] MEDS ORDERED: NA PHOS,M-B/NA PHOS,DI-BA (ADULT) 133 ML ENEMA PR PRN (11:08)
[2017-06-17] MEDS ORDERED: ACETAMINOPHEN 650 MG SUPP.RECT PR PRN (11:08)
--- NOTE | 2017-06-17 13:09 | Warning Signs in Babies ---
VOD Warning Signs Datetime Report Generated by [facility]: 06/17/2017 13:09 VOD#608 -Warning Signs in Babies: Viewed with Parent(s)/Family (03/02/2017 13:38:Fanta Good RN)
[2017-06-17] MEDS ORDERED: AMMONIA INHALANTS 10 AMPUL/BOX IH ONE (13:24)
[2017-06-17] MEDS: IBUPROFEN 800 MG TABLET PO SCH ×2 (15:43→21:19)
--- NOTE | 2017-06-17 16:51 | Delivery Summary ---
Del Sum A-C Datetime Report Generated by CPN: 06/17/2017 16:51 DELIVERY PERSONNEL DELIVERY PERSONNEL: [id number] Delivery Doctor:: Anabel Rocha CNM Delivery Doctor:: Anabel Rocha CNM Nurse Social Worker Palliative Care Certified:: Anabel Rocha CNM Labor and Delivery Nurse:: Fanta Good RN Labor and Delivery Nurse:: Fanta Good RN Nursery Nurse:: Ana Castro RN Student Observers:: Georgette Kaur [facility] [employer] Honer/TRAFFIC CONTROL OPERATOR: ST Jaswinder Precision Honer/TRAFFIC CONTROL OPERATOR: Yanni Webb, ST MATERNAL INFORMATION Delivery Anesthesia: Epidural Medications After Delivery: Pitocin Drip 20 Units/1000ml NSS Medications After Delivery: Pitocin Bolus-Please Comment Meds After Delivery Comment: Pitocin 20 units in 1000 ml nss Estimated Blood Loss (ml): qbl 290 Maternal Complications: Other Other Maternal Complications: low lying placenta Provider Comments: Pt. progressed to c/c/+1 with urge to push, began pushing then went on to deliver a viable baby boy. Vigorous respiratory effort and cry spontaneously at delivery. Baby placed skin to skin on maternal abdomen and cord allowed to stop pulsating then clamped x2 and cut by FOB. Placenta delivered spontaneously intact (3vc noted, cord blood obtained, marginal insertion and additional lobe noted). 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 No lacerations or abrasions noted on inspection, bleeding stable. Mother and baby in room stable, skin to skin and bonding at this time. LABOR SUMMARY EDC: 06/27/2017 00:00 No. Babies in Womb: 1 Attempted: No Labor Anesthesia: Epidural LABOR INFORMATION Reason for Induction: Not Applicable Onset of Labor: 06/16/2017 00:42 Complete Dilatation: 06/17/2017 10:27 Oxytocin: N/A Group B Beta Strep: Negative Antibiotics # of Doses: 0 Steroids Given: None Reason Steroids Not Administered: Not Applicable MEMBRANES Membranes Rupture Method: Spontaneous Rupture of Membranes: 06/17/2017 09:37 Length of Rupture (hr): 1.00 Amniotic Fluid Color: Clear Amniotic Fluid Amount: Moderate Amniotic Fluid Odor: Normal STAGES OF LABOR Stage 1 hr: 33 Stage 1 min: 45 Stage 2 hr: 0 Stage 2 min: 10 Stage 3 hr: 0 Stage 3 min: 4 Total Time in Labor hr: 33 Total Time in Labor min: 59 VAGINAL DELIVERY Episiotomy: None Laceration #1: None Laceration Extension #1: N/A Laceration Repair: Not Applicable Laceration Repair Note: n/a Sponge Count Correct: N/A BABY A INFORMATION Infant Delivery Date/Time: 06/17/2017 10:37 Method of Delivery: Vaginal Born in Route : No : N/A Forceps: N/A Vacuum Extraction: N/A Shoulder Dystocia : No PRESENTATION/POSITION BABY A Presentation: Cephalic Presentation: Cephalic Presentation: Cephalic Cephalic Presentation: Vertex Vertex Position: Left Occipital Anterior Breech Presentation: N/A PLACENTA INFORMATION BABY A Placenta Delivery Time : 06/17/2017 10:41 Placenta Method of Delivery: Spontaneous Placenta Status: Delivered SCORES BABY A Heart Rate 1 min: >100 bpm Resp Effort 1 min: Good Cry Reflex Irritability 1 min: Cough or Sneeze or Pulls Away Muscle Tone 1 min: Active Motion Color 1 min: Blue/Pale Resuscitation Effort 1 min: Tactile Stimulation SCORE 1 MIN: 8 Heart Rate 5 min: >100 bpm Resp Effort 5 min: Good Cry Reflex Irritability 5 min: Cough or Sneeze or Pulls Away Muscle Tone 5 min: Active Motion Color 5 min: Body [place], Extremities Blue Resuscitation Effort 5 min: Tactile Stimulation SCORE 5 MIN: 9 INFORMATION BABY A Gestational Age at Delivery: 38.4 Gestational Status: Early Term- 37- 38.6 Weeks Outcome : Liveborn Condition : Stable Infant Sex: Male IDENTIFICATION BABY A Infant Verification Date/Time: 06/17/2017 10:51 ID Band Number: [id number] Mother's Name Verified: Yes RN Verifying : A Coelho RN J Field RN WEIGHT/LENGTH BABY A Birthweight (gm): 3000 Weight (lb): 6 Infant Weight (oz): 10 Length (in): 19.50 Infant Length (cm): 49.53 CORD INFORMATION BABY A No. 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 Skin to Skin: Yes BABY B INFORMATION : N/A SIGNATURES Assignment: Radha Mathur MD Signature: with User ID: [email or web address] : with User ID: [email or web address]
[2017-06-17] MEDS: DOCUSATE SODIUM 100 MG CAPSULE PO SCH (17:04)
[2017-06-17] MEDS: FERROUS SULFATE 325 MG TABLET PO SCH (17:04)
[2017-06-17] MEDS: FAMOTIDINE 20 MG TABLET PO SCH (21:19)
[2017-06-18] MEDS: IBUPROFEN 800 MG TABLET PO SCH ×3 (05:33→22:05)
[2017-06-18 07:26] LABS: HEMATOCRIT 27.8 % (36.0-47.0); HEMOGLOBIN 9.2 g/dL (12.0-15.5); MEAN CORPUSCULAR HEMOGLOBIN 28.5 pg (27.0-33.4); MEAN CORPUSCULAR HGB CONC 33.1 g/dL (32.0-36.0); MEAN CORPUSCULAR VOLUME 86 fl (80-97); PLATELET COUNT 206 10^3/uL (150-450); RED BLOOD COUNT 3.22 10^6/uL (3.72-5.28); WHITE BLOOD COUNT 12.7 10^3/uL (4.0-10.5)
[2017-06-18] MEDS: FAMOTIDINE 20 MG TABLET PO SCH ×2 (09:58→22:07)
[2017-06-18] MEDS: FERROUS SULFATE 325 MG TABLET PO SCH ×2 (09:58→17:59)
[2017-06-18] MEDS: PRENATAL VITAMIN W DHA CAPSULE PO SCH (09:58)
[2017-06-18] MEDS: DOCUSATE SODIUM 100 MG CAPSULE PO SCH ×2 (09:59→17:59)
[2017-06-18] MEDS: SENNOSIDES/DOCUSATE 8.6-50 MG 1 EACH TABLET PO SCH (09:59)
--- NOTE | 2017-06-18 10:12 | PDOC PROGRESS REPORT ---
Subjective-OB Progress Note for:: 06/18/17 Subjective: s/p #1 Pt doing well, tolerating diet, lochia is stable, pain well controlled, passing gas, bonding with baby. Physical Exam (OB) Vital Signs: Temp Pulse Resp BP Pulse Ox 97.8 F 85 15 117/78 97 06/18/17 07:56 06/18/17 07:56 06/18/17 07:56 06/18/17 07:56 06/18/17 07:56 Intake & Output 06/17/17 06/18/17 06/19/17 06:59 06:59 06:59 Weight 76.7 kg - PIH/Pre-Eclampsia DTR's: 2 + Clonus: Negative Headache: Absent Epigastric Pain: No Visual Changes: No - Lochia Lochia Amount: Scant < 10 ml Lochia Color: Rubra/Red - Abdomen Description: Soft, Round Hernia Present: No Fundal Description: Firm, Midline Fundal Height: u/u - u/2 Objective-Diagnostic Laboratory: 06/18/17 06:48 06/18/17 06:48 WBC 12.7 H RBC 3.22 L Hgb 9.2 L Hct 27.8 L MCV 86 MCH 28.5 MCHC 33.1 RDW 14.0 Plt Count 206 Assessment and Plan(PN) - Assessment and Plan (1) Vaginal delivery Is this a current diagnosis for this admission?: Yes Plan: routine pp care (2) Acute blood loss anemia Is this a current diagnosis for this admission?: Yes Plan: ferrous sulfate increase dietary anemia - Time Spent with Patient Time with patient: Less than 15 minutes Critical Time spent with patient: Less than 15 minutes Medications reviewed and adjusted accordingly: Yes - Disposition Anticipated Discharge: Home
[2017-06-19] MEDS: IBUPROFEN 800 MG TABLET PO SCH (05:39)
[2017-06-19 08:51] VITALS: BP 128/72
--- NOTE | 2017-06-19 09:23 | PDOC DISCHARGE SUMMARY ---
Final Diagnosis Discharge Date: 06/19/17 - Final Diagnosis (1) Vaginal delivery Is this a current diagnosis for this admission?: Yes (2) Acute blood loss anemia Is this a current diagnosis for this admission?: Yes Discharge Data - Discharge Medication Prescriptions: Docusate Sodium [Colace 100 mg Capsule] 100 mg PO BID #60 capsule Ferrous Sulfate [Feosol 325 mg Tablet] 325 mg PO BID #60 tablet Ibuprofen [Motrin 800 mg Tablet] 800 mg PO Q8 #60 tablet Home Medications: Pnv No.95/Ferrous Fum/Folic AC [ Multivitamin Tablet] 1 each PO DAILY Docusate Sodium [Colace 100 mg Capsule] 100 mg PO BID #60 capsule 06/19/17 Ferrous Sulfate [Feosol 325 mg Tablet] 325 mg PO BID #60 tablet 06/19/17 Ibuprofen [Motrin 800 mg Tablet] 800 mg PO Q8 #60 tablet 06/19/17 Gestational Age: 38.4 Reason(s) for Admission: Onset of Labor Intrapartum Procedure(s): Spontaneous Vaginal Delivery - [place] Data Baby 1 Male at 1 minute: 8 at 5 minutes: 9 Weight: 3000 kg Home with Mother: Yes Complications: Yes - chromosomal anomaly, club foot - Diagnosis Test Laboratory: Temp Pulse Resp BP Pulse Ox 98.2 F 76 16 128/72 H 98 06/19/17 08:05 06/19/17 08:05 06/19/17 08:05 06/19/17 08:05 06/19/17 08:05 06/16/17 06/17/17 06/18/17 22:20 01:11 06:48 RBC 3.86 3.22 L Hgb 11.0 L 9.2 L Hct 33.2 L 27.8 L Urine Opiates Screen NEGATIVE - Discharge information/Instructions Discharge Activity: Activity As Tolerated, Pelvic Rest, No tub bath Discharge Diet: Regular Disposition: HOME, SELF-CARE Follow up with: [facility] in: 4, Weeks
[2017-06-19] MEDS: PRENATAL VITAMIN W DHA CAPSULE PO SCH (09:41)
[2017-06-19] MEDS: FERROUS SULFATE 325 MG TABLET PO SCH (09:42)
[2017-06-19] MEDS: FAMOTIDINE 20 MG TABLET PO SCH (09:42)
[2017-06-19] MEDS: DOCUSATE SODIUM 100 MG CAPSULE PO SCH (09:42)
[2017-06-19] MEDS: SENNOSIDES/DOCUSATE 8.6-50 MG 1 EACH TABLET PO SCH (10:00)
== END 2017-06-19 13:15 | disposition home or self-care (01) | DRG 774 ==
LOC: LC 22:10 → LR 06-17 00:52 → 2S 06-17 12:00 → LR 06-17 12:33 → 2S 06-17 14:01
PROVIDERS: ADMIT Obstetrics & Gynecology; ATTEND Obstetrics & Gynecology
PROC: 10E0XZZ Delivery of Products of Conception, External Approach (ICD-10-PCS; principal; 2017-06-17)
DX: O44.43 Low lying placenta NOS or without hemorrhage, third trimester (principal); D62 Acute posthemorrhagic anemia; O99.02 Anemia complicating childbirth; Z3A.38 38 weeks gestation of pregnancy; Z37.0 Single live birth
CPT/HCPCS: 36415; 80307; 81005; 85025; 85027; 86592; 86850; 86900; 86901; 88307; J2590; J3490

== ENCOUNTER 2017-07-29 08:10 | Observation (INO) | payer MEDICAID ==
[~2017-07-29 08:10] MED LIST: DEXAMETHASONE SOD PHOSPHATE INJ 4 MG/1 ML VIAL ONE; GLYCOPYRROLATE INJ 0.4 MG/2 ML VIAL ONE; KETOROLAC TROMETHAMINE 60 MG/2 ML SDV ONE; LIDOCAINE 2% INJ-PF (20 MG/ML) 2 ML AMPUL ONE; METOCLOPRAMIDE HCL INJ/PF 10 MG/2 ML SDV ONE; NEOSTIGMINE METHYLSULFATE 10 MG/10 ML VIAL ONE; ONDANSETRON HCL INJ/PF 4 MG/2 ML SDV ONE; ROCURONIUM BROMIDE INJ 50 MG/5 ML VIAL IV ONE; SUCCINYLCHOLINE CHLORIDE INJ 200 MG/10 ML VIAL ONE
--- NOTE | 2017-07-29 09:10 | ER Document Report ---
ED General - General Chief Complaint: Abdominal Pain Stated Complaint: BACK AND STOMACH PAIN Time Seen by Provider: 07/29/17 09:08 Notes: This is a 27-year-old female. 1 month . History of gallstone. States that her pain in the abdomen is getting worse. Waking her up at night. Seems to be worse with food. Came in this morning because her pain was quite severe. No fever. No chills. Did have a UTI when she was . Uncomplicated vaginal delivery. TRAVEL OUTSIDE OF THE [place] IN LAST 30 DAYS: No - HPI Onset: Just prior to arrival - Related Data Allergies/Adverse Reactions: No Known Allergies Allergy (Verified 07/29/17 08:18) Past Medical History - General Information source: Patient - Social History Smoking Status: Never Smoker Cigarette use (# per day): No Chew tobacco use (# tins/day): No Frequency of alcohol use: None Drug Abuse: None Lives with: Spouse/Significant other Family History: Reviewed & Not Pertinent Patient has suicidal ideation: No Patient has homicidal ideation: No Pulmonary Medical History: Denies: Hx Asthma Neurological Medical History: Denies: Hx Migraine, Hx Seizures Renal/ Medical History: Denies: Hx Peritoneal Dialysis - Immunizations Immunizations up to date: Yes Review of Systems - Review of Systems Constitutional: No symptoms reported EENT: No symptoms reported Cardiovascular: No symptoms reported Respiratory: No symptoms reported Gastrointestinal: Abdominal pain. denies: Diarrhea, Nausea, Vomiting Genitourinary: No symptoms reported Female Genitourinary: No symptoms reported Musculoskeletal: No symptoms reported Skin: No symptoms reported Hematologic/Lymphatic: No symptoms reported Neurological/Psychological: No symptoms reported Physical Exam - Vital signs Vitals: Temp Pulse Resp BP Pulse Ox 98.6 F 81 16 127/78 H 97 07/29/17 08:14 07/29/17 08:14 07/29/17 08:14 07/29/17 08:14 07/29/17 08:14 Interpretation: Normal - General General appearance: Appears well, Alert - HEENT Head: Normocephalic, Atraumatic Eyes: Normal Pupils: PERRL - Respiratory Respiratory status: No respiratory distress Chest status: Nontender Breath sounds: Normal Chest palpation: Normal - Cardiovascular Rhythm: Regular Heart sounds: Normal auscultation Murmur: No - Abdominal Inspection: Normal Distension: No distension Bowel sounds: Normal Tenderness: Tender, Other - Mild tenderness palpation of the right upper quadrant. No: Coelho's sign, Guarding, Rebound Organomegaly: No organomegaly - Back Back: Normal, Nontender - Extremities General upper extremity: Normal inspection, Nontender, Normal color, Normal ROM , Normal temperature General lower extremity: Normal inspection, Nontender, Normal color, Normal ROM , Normal temperature, Normal weight bearing. No: Cherise's sign - Neurological Neuro grossly intact: Yes Cognition: Normal Orientation: AAOx4 [place] Coma Scale Eye Opening: Spontaneous [place] Coma Scale Verbal: Oriented [place] Coma Scale Motor: Obeys Commands [place] Coma Scale Total: 15 Speech: Normal Motor strength normal: LUE, RUE, LLE, RLE Sensory: Normal - Psychological Associated symptoms: Normal affect, Normal mood - Skin Skin Temperature: Warm Skin Moisture: Dry Skin Color: Other - Patient's skin on her back is grossly abnormal. Patient has abnormal hair patterns as well as multiple areas of discoloration with multiple different colored skin. There are dark areas as well as some soft texture differences in some of the areas. The discoloration covers most of her skin on the back. Course - Re-evaluation Re-evalutation: 07/29/17 11:46 Laboratory 07/29/17 07/29/17 07/29/17 09:27 09:27 09:34 WBC 8.2 RBC 4.48 Hgb 12.5 Hct 37.0 MCV 83 MCH 27.9 MCHC 33.8 RDW 14.8 H Plt Count 325 Seg Neutrophils % 73.1 Lymphocytes % 19.2 Monocytes % 4.9 Eosinophils % 1.8 Basophils % 1.0 Absolute Neutrophils 6.0 Absolute Lymphocytes 1.6 Absolute Monocytes 0.4 Absolute Eosinophils 0.1 Absolute Basophils 0.1 Sodium 143.8 Potassium 4.2 Chloride 107 Carbon Dioxide 22 Anion Gap 15 BUN 15 Creatinine 0.64 Est GFR ( Amer) > 60 Est GFR (Non-Af Amer) > 60 Glucose 99 Calcium 9.4 Total Bilirubin 0.2 Direct Bilirubin 0.2 Neonat Total Bilirubin Not Reportable Neonat Direct Bilirubin Not Reportable Neonat Indirect Bili Not Reportable AST 32 ALT 35 Alkaline Phosphatase 64 Total Protein 8.1 Albumin 4.5 Lipase 153.9 Urine Color YELLOW Urine Appearance SLIGHTLY-CLOUDY Urine pH 6.0 Ur Specific [place] 1.025 Urine Protein 30 H Urine Glucose (UA) NEGATIVE Urine Ketones NEGATIVE Urine Blood NEGATIVE Urine Nitrite NEGATIVE Urine Bilirubin NEGATIVE Urine Urobilinogen NEGATIVE Ur Leukocyte Esterase LARGE H Urine WBC (Auto) 36 Urine RBC (Auto) 2 Urine Bacteria (Auto) TRACE Squamous Epi Cells Auto 18 Urine Mucus (Auto) MANY Urine Ascorbic Acid NEGATIVE Urine HCG, Qual NEGATIVE Abdomen Ultrasound 07/29/17 09:56 IMPRESSION: 1 cm stone in the gallbladder neck She does have a gallstone in the gallbladder neck. Labs are fairly unremarkable with exception of a UTI. Will start on antibiotics. Will consult with general surgery to see patient at this time. Of note, patient has a grossly abnormal skin on her back. I asked her if this has been evaluated by dermatology and she states that she does have a government services professional sees her on a regular basis. I have advised her to get good close follow-up with some of these areas on her back may even need to be biopsied. A family member was present and states that her skin is look that way as long as she is known her. Regardless, I am strongly advising her to get good close follow-up with his government services professional. 07/29/17 12:22 07/29/17 12:24 Surgeon (Dr. Mueller) has seen the patient. Waiting recommendations at this time. 07/29/17 12:41 Patient to take to the OR here later today. - Vital Signs Vital signs: Temp Pulse Resp BP Pulse Ox 98.6 F 81 16 127/78 H 97 07/29/17 08:14 07/29/17 08:14 07/29/17 08:14 07/29/17 08:14 07/29/17 08:14 - Laboratory Result Diagrams: 07/29/17 09:27 07/29/17 09:27 Laboratory results interpreted by me: 07/29/17 07/29/17 09:27 09:34 RDW 14.8 H Urine Protein 30 H Ur Leukocyte Esterase LARGE H Discharge - Discharge Clinical Impression: Cholelithiasis Qualifiers: Cholelithiasis location: gallbladder Cholecystitis presence: without cholecystitis Biliary obstruction: without biliary obstruction Qualified Code(s) : K80.20 - Calculus of gallbladder without cholecystitis without obstruction Urinary tract infection Qualifiers: Urinary tract infection type: site unspecified Hematuria presence: without hematuria Qualified Code(s): N39.0 - Urinary tract infection, site not specified Condition: Good Disposition: ADMITTED OBSERVATION Admitting Provider: Surgicalist - [place] Unit Admitted: Surgical Floor Instructions: Gallbladder Disease ([facility]), Urinary Tract Infection ([facility]) Additional Instructions: Please follow-up with general surgery as advised. Take all medications as prescribed. Return for any worsening symptoms or concerns. Prescriptions: Sulfamethoxazole/Trimethoprim [Bactrim Ds Tablet] 1 each PO BID 3 Days #6 tablet Referrals: JOCELYNE BERNAL MD [Primary Care Provider] - Follow up as needed DA MUELLER MD [ACTIVE STAFF] - Follow up in 3-5 days
[2017-07-29 09:44] LABS: ABSOLUTE BASOPHILS # (AUTO) 0.1 10^3/uL (0.0-0.2); ABSOLUTE EOSINOPHILS # (AUTO) 0.1 10^3/uL (0.0-0.6); ABSOLUTE LYMPHOCYTES (AUTO) 1.6 10^3/uL (0.5-4.7); ABSOLUTE MONOCYTES (AUTO) 0.4 10^3/uL (0.1-1.4); EOSINOPHILS % (AUTO) 1.8 % (0-6); HEMOGLOBIN 12.5 g/dL (12.0-15.5); LYMPHOCYTES % (AUTO) 19.2 % (13-45); MEAN CORPUSCULAR HEMOGLOBIN 27.9 pg (27.0-33.4); MEAN CORPUSCULAR HGB CONC 33.8 g/dL (32.0-36.0); MEAN CORPUSCULAR VOLUME 83 fl (80-97); MONOCYTES % (AUTO) 4.9 % (3-13); PLATELET COUNT 325 10^3/uL (150-450); RED BLOOD COUNT 4.48 10^6/uL (3.72-5.28); RED CELL DISTRIBUTION WIDTH 14.8 % (11.5-14.0); SEGMENTED NEUTROPHILS % (AUTO) 73.1 % (42-78); TOTAL CELLS COUNTED % (AUTO) 100 %; WHITE BLOOD COUNT 8.2 10^3/uL (4.0-10.5)
[2017-07-29 10:11] LABS: ALANINE AMINOTRANSFERASE 35 U/L (9-52); ALBUMIN 4.5 g/dL (3.5-5.0); ALKALINE PHOSPHATASE 64 U/L (38-126); ANION GAP 15 (5-19); ASPARTATE AMINO TRANSFERASE 32 U/L (14-36); BILIRUBIN,DIRECT 0.2 mg/dL (0.0-0.4); BILIRUBIN,TOTAL 0.2 mg/dL (0.2-1.3); BLOOD UREA NITROGEN 15 mg/dL (7-20); CALCIUM 9.4 mg/dL (8.4-10.2); CARBON DIOXIDE 22 mmol/L (22-30); CHLORIDE 107 mmol/L (98-107); GLUCOSE 99 mg/dL (75-110); LIPASE 153.9 U/L (23-300); POTASSIUM 4.2 mmol/L (3.6-5.0); SODIUM 143.8 mmol/L (137-145); TOTAL PROTEIN 8.1 g/dL (6.3-8.2)
[2017-07-29 10:22] LABS: APPEARANCE,URINE SLIGHTLY-CLOUDY; BILIRUBIN,URINE NEGATIVE (NEGATIVE); COLOR,URINE YELLOW; GLUCOSE, URINE NEGATIVE (NEGATIVE); KETONES,URINE NEGATIVE (NEGATIVE); LEUKOCYTE ESTERASE,URINE LARGE (NEGATIVE); NITRITE,URINE NEGATIVE (NEGATIVE); PROTEIN,URINE 30 mg/dL (NEGATIVE); URINE SPECIFIC GRAVITY 1.025; UROBILINOGEN,URINE NEGATIVE mg/dL (<2.0)
--- NOTE | 2017-07-29 10:51 | RADIOLOGY REPORT (SQ) ---
EXAM DESCRIPTION: U/S ABDOMEN LIMITED W/O DOP COMPLETED DATE/TIME: 07/29/2017 10:25 am REASON FOR STUDY: ruq paijn COMPARISON: Abdominal ultrasound 01/15/2017 TECHNIQUE: Dynamic and static grayscale images acquired of the abdomen and recorded on PACS. Additio nal selected color Doppler and spectral images recorded. LIMITATIONS: Midline bowel gas FINDINGS: PANCREAS: Midline pancreas unremarkable LIVER: No masses. Echotexture normal. LIVER VASCULATURE: Normal directional flow of the main portal vein and hepatic veins. GALLBLADDER: 1 cm stone at the gallbladder neck, unchanged between supine and decubitus positioning. No gallbladder wall thickening or pericholecystic fluid. ULTRASOUND-DETECTED LAI'S SIGN: Negative INTRAHEPATIC DUCTS AND COMMON DUCT: CBD and intrahepatic ducts normal caliber. No filling defects. INFERIOR VENA CAVA: Normal flow. AORTA: No aneurysm. RIGHT KIDNEY: Normal size. Normal echogenicity. No solid or suspicious masses. No hydronephrosis. No calcifications. PERITONEAL AND RIGHT PLEURAL SPACE: No ascites or effusions. OTHER: No other significant findings. IMPRESSION: 1 cm stone in the gallbladder neck TECHNICAL DOCUMENTATION: JOB ID: [id number] [email or web address]- All Rights Reserved Reading location - IP/workstation name: [email or web address]
[2017-07-29] MEDS ORDERED: ONDANSETRON HCL INJ/PF 4 MG/2 ML SDV IV PRN ×2 (12:47→19:26)
--- NOTE | 2017-07-29 12:47 | PDOC H&P ---
History of Present Illness Admission Date/PCP: JOCELYNE BERNAL MD Patient complains of: Back and right upper quadrant abdominal pain History of Present Illness: LETICIA NOBLE is a 27 year old female who is one-month from spontaneous vaginal delivery. She had experienced multiple episodes of back pain radiating to the right upper abdomen often postprandial throughout her . She comes in now with a particularly worse episode that began last night. No fever. Past Medical History Medical History: Other - Giant nevus on the back. Pulmonary Medical History: Denies: Asthma Neurological Medical History: Denies: Migraine, Seizures Past Surgical History Past Surgical History: Reports: None Social History Lives with: Spouse/Significant other Smoking Status: Never Smoker Family History Family History: Reviewed & Not Pertinent Parental Family History Reviewed: No Children Family History Reviewed: No Sibling(s) Family History Reviewed.: No Medication/Allergy Home Medications: Pnv No.95/Ferrous Fum/Folic AC [ Multivitamin Tablet] 1 each PO DAILY Docusate Sodium [Colace 100 mg Capsule] 100 mg PO BID #60 capsule 06/19/17 Ferrous Sulfate [Feosol 325 mg Tablet] 325 mg PO BID #60 tablet 06/19/17 Ibuprofen [Motrin 800 mg Tablet] 800 mg PO Q8 #60 tablet 06/19/17 Sulfamethoxazole/Trimethoprim [Bactrim Ds Tablet] 1 each PO BID 3 Days #6 tablet 07/29/17 Allergies/Adverse Reactions: No Known Allergies Allergy (Verified 07/29/17 08:18) Physical Exam Vital Signs: Temp Pulse Resp BP Pulse Ox 98.6 F 81 16 127/78 H 97 07/29/17 08:14 07/29/17 08:14 07/29/17 08:14 07/29/17 08:14 07/29/17 08:14 Intake & Output 07/28/17 07/29/17 07/30/17 06:59 06:59 06:59 Weight 66.8 kg General appearance: PRESENT: no acute distress, cooperative Neck exam: PRESENT: other - Supple and nontender with no masses Respiratory exam: PRESENT: clear to auscultation marcela Cardiovascular exam: PRESENT: RRR GI/Abdominal exam: PRESENT: other - Soft, nondistended, focal tenderness to palpation in the right upper quadrant without peritoneal signs. No CVA tenderness Extremities exam: PRESENT: other - No swelling and no tenderness Neurological exam: PRESENT: alert, awake Psychiatric exam: PRESENT: appropriate affect Skin exam: PRESENT: other - Dark discoloration involving her entire back. Results Laboratory Results: 07/29/17 09:27 07/29/17 09:27 07/29/17 07/29/17 07/29/17 09:27 09:27 09:34 WBC 8.2 RBC 4.48 Hgb 12.5 Hct 37.0 MCV 83 MCH 27.9 MCHC 33.8 RDW 14.8 H Plt Count 325 Seg Neutrophils % 73.1 Lymphocytes % 19.2 Monocytes % 4.9 Eosinophils % 1.8 Basophils % 1.0 Absolute Neutrophils 6.0 Absolute Lymphocytes 1.6 Absolute Monocytes 0.4 Absolute Eosinophils 0.1 Absolute Basophils 0.1 Sodium 143.8 Potassium 4.2 Chloride 107 Carbon Dioxide 22 Anion Gap 15 BUN 15 Creatinine 0.64 Est GFR ( Amer) > 60 Est GFR (Non-Af Amer) > 60 Glucose 99 Calcium 9.4 Total Bilirubin 0.2 AST 32 ALT 35 Alkaline Phosphatase 64 Total Protein 8.1 Albumin 4.5 Lipase 153.9 Urine Color YELLOW Urine Appearance SLIGHTLY-CLOUDY Urine pH 6.0 Ur Specific [place] 1.025 Urine Protein 30 H Urine Glucose (UA) NEGATIVE Urine Ketones NEGATIVE Urine Blood NEGATIVE Urine Nitrite NEGATIVE Ur Leukocyte Esterase LARGE H Urine WBC (Auto) 36 Urine RBC (Auto) 2 Impressions: Abdomen Ultrasound 07/29/17 09:56 IMPRESSION: 1 cm stone in the gallbladder neck Assessment & Plan - Diagnosis (1) Cholecystitis with cholelithiasis Is this a current diagnosis for this admission?: Yes Plan: We will admit the patient and do laparoscopic cholecystectomy in the evening since she ate food while in the ER. I have discussed with the patient the risk and benefits of the procedure including risk of infection, bleeding, adjacent structure injury, mistaken diagnosis, postcholecystectomy diarrhea and possible conversion to an open procedure. Patient understands and agrees to proceed. 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 She has seen dermatology in the past but not recently. This giant nevus needs to be closely follow.
[2017-07-29] MEDS: LEVOFLOXACIN 500 MG/D5W RTU 500 MG/100 ML RTUPB IV SCH (14:55)
[2017-07-29] MEDS: NORMAL SALINE 1000 ML 1,000 ML IV PRN ×2 (14:56→22:03)
[2017-07-29] MEDS ORDERED: METOCLOPRAMIDE HCL INJ/PF 10 MG/2 ML SDV ONE (17:39)
[2017-07-29] MEDS ORDERED: FAMOTIDINE INJ/PF 20 MG/2 ML SDV IV ONE (17:40)
[2017-07-29] MEDS ORDERED: CITRIC ACID/SODIUM CITRATE ORAL SOLN 15 ML UDCUP ONE (17:40)
[2017-07-29] MEDS ORDERED: BUPIVACAINE HCL 0.25 % INJ/PF (2.5 MG/1 ML) 30 ML VIAL ONE (18:36)
[2017-07-29] MEDS ORDERED: DIPHENHYDRAMINE HCL 50 MG/ML VIAL IV PRN (19:26)
[2017-07-29] MEDS ORDERED: FENTANYL CITRATE INJ/PF 100 MCG/2 ML AMPUL IV PRN ×3 (19:26)
--- NOTE | 2017-07-29 20:28 | Operative Report ---
Operative Report DATE OF SURGERY: 07/29/17 PREOPERATIVE DIAGNOSIS: Acute cholecystitis POSTOPERATIVE DIAGNOSIS: Gallstone with cholecystitis OPERATION: Laparoscopic cholecystectomy SURGEON: DA KEITA ANESTHESIA: GA TISSUE REMOVED OR ALTERED: Gall bladder COMPLICATIONS: None ESTIMATED BLOOD LOSS: Minimal INTRAOPERATIVE FINDINGS: Gallstone with thickened gallbladder wall PROCEDURE: Informed consent was obtained. Patient was brought to the operating room placed operating table in supine position. After satisfactory induction of general anesthesia, patient's abdomen was prepped and draped in usual sterile fashion. A supraumbilical midline incision was made and dissection carried down to the fascia the peritoneal cavity entered without difficulty. Jade trocar was inserted. Pneumoperitoneum produced good patient toleration. 5 mm trocar was placed in the subxiphoid location.Two 5 mm trochars were placed in the right subcostal location. The gallbladder was grasped and retracted cephalad over the dome of the liver. The infundibulum of the gallbladder was grasped retracted laterally and inferiorly thus exposing calot's triangle. Visceral peritoneum was very thick, making the dissection difficult. What appeared to be a ductal structure going toward the gallbladder was identified and it was dissected however this ductal structure appeared to abut the gallbladder and then dive back towards the john hepatis. With further dissection, it became apparent that this structure was the common bile duct fused to the cystic duct, mimicking the cystic duct. There was no evidence of common bile duct injury. Further dissection clearly demonstrated the anatomy with the cystic duct coming off this structure and clearly going into the gallbladder. At Calot's triangle, the cystic artery was clearly identified as well. The cystic duct was clipped and divided. The cystic artery was clipped and divided. The gallbladder was taken off the gallbladder bed using the hook electrocautery technique. The gallbladder was removed with an Endobag through the Jade trocar site fascial defect. The operative field was irrigated and irrigant aspirated out. Hemostasis appeared excellent. All trochars were removed under the direct vision a laparoscope to ensure hemostasis. The Jade trocar site fascial defect was closed with interrupted Vicryl sutures. All skin incisions were closed with subcuticular interrupted Monocryl sutures. Marcaine was injected at the port sites. Patient tolerated procedure well with no apparent complications and was taken to the recovery area in stable condition.
--- NOTE | 2017-07-29 21:14 | PDOC PROGRESS REPORT ---
Subjective Progress Note for:: 07/29/17 Subjective:: Some abdominal pain. No other complaints. No chest pain and no shortness of breath. Reason For Visit: ACUTE CHOLELITHIASIS Physical Exam Vital Signs: Temp Pulse Resp BP Pulse Ox 98.4 F 69 17 136/87 H 100 07/29/17 14:46 07/29/17 14:46 07/29/17 14:46 07/29/17 14:46 07/29/17 14:46 Intake & Output 07/28/17 07/29/17 07/30/17 06:59 06:59 06:59 Intake Total 1400 Output Total 10 Balance 1390 General appearance: PRESENT: no acute distress, cooperative Respiratory exam: PRESENT: clear to auscultation marcela Cardiovascular exam: PRESENT: RRR, systolic murmur GI/Abdominal exam: PRESENT: other - Soft, nondistended, minimal tenderness. Results Impressions: Abdomen Ultrasound 07/29/17 09:56 IMPRESSION: 1 cm stone in the gallbladder neck Assessment & Plan - Diagnosis (1) Cholecystitis with cholelithiasis Is this a current diagnosis for this admission?: Yes Plan: Status post laparoscopic cholecystectomy. Looks okay other than new onset left bundle branch block. Will consult cardiology. Transfer patient to a telemetry unit. 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
[2017-07-29] MEDS: HYDROMORPHONE HCL INJ/PF 2 MG/ML AMPULE IV PRN (22:02)
[2017-07-30] MEDS: HYDROMORPHONE HCL INJ/PF 2 MG/ML AMPULE IV PRN ×3 (04:19→14:00)
--- NOTE | 2017-07-30 07:16 | EKG REPORT ---
SEVERITY:- ABNORMAL ECG - SINUS RHYTHM LEFT BUNDLE BRANCH BLOCK PROLONG QT : Confirmed by: David Chang MD 30-Jul-2017 07:16:13
[2017-07-30] MEDS: NORMAL SALINE 1000 ML 1,000 ML IV PRN ×2 (08:36→20:27)
--- NOTE | 2017-07-30 09:59 | PDOC PROGRESS REPORT ---
Subjective Progress Note for:: 07/30/17 Reason For Visit: ACUTE CHOLELITHIASIS Physical Exam Vital Signs: Temp Pulse Resp BP Pulse Ox 98.7 F 90 12 119/72 99 07/30/17 07:37 07/30/17 07:37 07/30/17 07:37 07/30/17 07:37 07/30/17 07:37 Intake & Output 07/29/17 07/30/17 07/31/17 06:59 06:59 06:59 Intake Total 2500 Output Total 160 Balance 2340 Weight 69.9 kg Results Impressions: Abdomen Ultrasound 07/29/17 09:56 IMPRESSION: 1 cm stone in the gallbladder neck Assessment & Plan - Diagnosis (1) Left bundle branch block Is this a current diagnosis for this admission?: Yes (2) Cholecystitis with cholelithiasis Is this a current diagnosis for this admission?: Yes - Plan Summary Plan Summary: This is a 27-year-old female status post laparoscopic cholecystectomy for acute cholecystitis. During the operation, she was found to have a left bundle branch block. This is a new finding. Patient is doing well this morning. I have encouraged her to get out of bed and ambulate. I will advance her diet. Cardiology has been consulted for recommendations regarding her left bundle branch block. Discharge after cardiac workup is complete.
[2017-07-30] MEDS: LEVOFLOXACIN 500 MG/D5W RTU 500 MG/100 ML RTUPB IV SCH (15:40)
[2017-07-30] MEDS ORDERED: HYDROCODONE/ACETAMINOPHEN 10-325 MG TABLET PO PRN (17:06)
[2017-07-30] MEDS ORDERED: IBUPROFEN 800 MG TABLET PO PRN (17:07)
--- NOTE | 2017-07-30 19:21 | XCELERA REPORT ---
[address] [address] Transthoracic Echocardiogram Report Name: LETICIA NOBLE Age: 27 yrs Gender: Female : 1990 Patient Status: Inpatient Patient Location: [address] [place], [place] [id number] Study Date: 07/30/2017 08:52 AM Height: 60 in Weight: 147 lb BSA: 1.6 m2 Procedure: A complete two-dimensional transthoracic echocardiogram was performed (2D, M-mode, spectral and color flow Doppler). The study was technically adequate with some images being suboptimal in quality. Reason For Study: LEFT BBB-IN OR. Ordering Physician: AVINASH ROLLE Performed By: Napoleon Carlson Interpretation Summary The Ejection Fraction estimate is 50-55% Left ventricular systolic function is low normal. Doppler measurements suggest impaired left ventricular relaxation, which is associated with grade I/IV or mild diastolic dysfunction There is borderline concentric left ventricular hypertrophy. The left ventricle is grossly normal size. Wall motion cannot be accurately commented on, but no definite regional wall motion abnormalities noted. The right ventricular systolic function is normal. The left atrial size is normal. The right atrium is normal. There is a trace amount of mitral regurgitation There is no mitral valve stenosis. No aortic regurgitation is present. There is no aortic valve stenosis There is a trace or physiologic amount of tricuspid regurgitation Tricuspid regurgitation jet envelope not well defined to measure RV systolic pressure accurately. The aortic root is not well visualized but is probably normal size. The inferior vena cava was not visualized Minimal pericardial effusion. MMode/2D Measurements & Calculations RVDd: 2.3 cm LVIDd: 5.4 cm FS: 32.8 % Ao root diam: 2.4 cm IVSd: 0.60 cm LVIDs: 3.6 cm EDV(Teich): 143.2 ml LVPWd: 0.72 cm ESV(Teich): 56.2 ml Ao root area: 4.5 cm2 EF(Teich): 60.7 % LA dimension: 3.4 cm Doppler Measurements & Calculations MV E max daron: MV P1/2t max daron: PA V2 max: TR max daron: 96.5 cm/sec 115.6 cm/sec 130.3 cm/sec 256.5 cm/sec MV A max daron: MV P1/2t: 104.1 msec PA max PG: TR max P.4 cm/sec 6.8 mmHg 26.3 mmHg MV E/A: 0.96 MVA(P1/2t): 2.1 cm2 MV dec slope: 325.4 cm/sec2 MV dec time: 0.17 sec Left Ventricle The left ventricle is grossly normal size. There is borderline concentric left ventricular hypertrophy. Left ventricular systolic function is low normal. The Ejection Fraction estimate is 50-55%. Doppler measurements suggest impaired left ventricular relaxation, which is associated with grade I/IV or mild diastolic dysfunction. Wall motion cannot be accurately commented on, but no definite regional wall motion abnormalities noted. Right Ventricle The right ventricle is grossly normal size. There is normal right ventricular wall thickness. The right ventricular systolic function is normal. Atria The right atrium is normal. The left atrial size is normal. Interarterial septum not well visualized and not well dopplered. Cannot comment on ASD/PFO presence. Mitral Valve The mitral valve is grossly normal. There is no mitral valve stenosis. There is a trace amount of mitral regurgitation. Aortic Valve The aortic valve is grossly normal. There is no aortic valve stenosis. No aortic regurgitation is present. Tricuspid Valve The tricuspid valve is not well visualized, but is grossly normal. There is no tricuspid stenosis. There is a trace or physiologic amount of tricuspid regurgitation. Tricuspid regurgitation jet envelope not well defined to measure RV systolic pressure accurately. Pulmonic Valve The pulmonic valve is not well visualized. Great Vessels The aortic root is not well visualized but is probably normal size. The inferior vena cava was not visualized. Effusions Minimal pericardial effusion. : AVINASH ROLLE > Li Mott
--- NOTE | 2017-07-30 19:33 | PDOC CONSULTATION ---
Consultation Consult Date: 07/30/17 Attending physician:: AVINASH ROLLE Consult reason:: Abnormal EKG History of Present Illness Admission Date/PCP: 07/29/17 13:26 JOCELYNE BERNAL MD Patient complains of: No complaints, status post gallbladder surgery History of Present Illness: LETICIA NOBLE is a 27 year old female, who had gallbladder surgery. Patient also 1 month . Postop she was noted to have a wide-complex QRS with however sinus rhythm. Twelve-lead EKG obtained reveals sinus rhythm with left bundle branch block pattern. There is no prior EKG to compare with. Patient was therefore admitted for further evaluation and observation. Patient on questioning denied any chest pain, shortness of breath, PND, orthopnea. This is patient's second child and there has been no problem during delivery. Unfortunately we cannot locate the previous EKG, either it was not performed or cannot be located. Patient however denies any prior history of syncope, near syncope, dizziness. Her only symptoms being some shortness of breath on exertion and also some fatigue and tiredness. Patient does describe history of loud habitual snoring. She has noted some daytime fatigue and sleepiness. Patient denied any other significant problems with her health. Past Medical History Pulmonary Medical History: Denies: Asthma Neurological Medical History: Denies: Migraine, Seizures Psychiatric Medical History: Denies: Depression Past Surgical History Past Surgical History: Reports: None Social History Information Source: Patient Lives with: Spouse/Significant other Smoking Status: Unknown if Ever Smoked Frequency of Alcohol Use: None Hx Recreational Drug Use: No Drugs: None Hx Prescription Drug Abuse: No - Advance Directive Resuscitation Status: Full Code Surrogate healthcare decision maker:: Patient's is the surrogate decision-maker Family History Family History: Reviewed & Not Pertinent - Family history negative for premature coronary artery disease or sudden cardiac in immediate family members Parental Family History Reviewed: Yes Children Family History Reviewed: Yes Sibling(s) Family History Reviewed.: Yes Medication/Allergy Home Medications: No Home Medications 07/29/17 Allergies/Adverse Reactions: No Known Allergies Allergy (Verified 07/29/17 08:18) Review of Systems Review of Systems: Please see history of present illness and past medical history as wall. Constitutional: No fever or chills reported. Head : No recent chronic headaches, recent head injury. Eyes: No recent eye pain, diplopia, redness, discharge, acute visual changes. Ears: No recent chronic ear pain, acute hearing loss, ear discharge. Oral cavity: No recent ulcerations, bleeding, oral cavity discomfort. Neck: No recent acute neck pain reported. Hematologic: No recent easy bruising or bleeding. Lymphatic: No recent lymph node enlargement reported. Cardiovascular system review: See history of present illness. Respiratory system review: No hemoptysis or blood clots in the lungs reported. Mild Shortness of breath on exertion Gastrointestinal system review: Negative for any recent acute hematemesis, melena. Status post cholecystectomy last night. Genitourinary system review: No recent acute or chronic hematuria, flank pain, UTI etc. reported. Status post 1 month. Skin system review: Negative for any recent abnormal bruising, no rash, no pruritus reported. Neurologic: No prior history of strokes, mini strokes, seizure disorder. Psychologic: No history of major psychosis or major depression reported. Musculoskeletal: Minor aches and pains reported. No acute joint swelling reported. Endocrine: No recent polyuria, polydipsia, recent heat or cold intolerance. Physical Exam Vital Signs: Temp Pulse Resp BP Pulse Ox 98.1 F 65 12 118/63 100 07/30/17 15:51 07/30/17 15:51 07/30/17 15:51 07/30/17 15:51 07/30/17 15:51 Intake & Output 07/29/17 07/30/17 07/31/17 06:59 06:59 06:59 Intake Total 2500 1368 Output Total 160 Balance 2340 1368 Weight 69.9 kg Exam: GENERAL: well-nourished and in no acute distress. Alert and oriented x3 HEAD: Atraumatic, normocephalic. EYES: Pupils equal round and reactive to light, extraocular movements intact, sclera anicteric, conjunctiva are normal. ENT: TMs normal, nares patent, oropharynx clear without exudates. Moist mucous membranes. No oral ulcerations or bleeding gums noted NECK: supple without lymphadenopathy. Trachea is central. No cervical or axillary lymphadenopathy noted. Carotids are 2+, JVD WNL LUNGS: Respiration seems nonlabored, no significant accessory muscle action noted. Breath sounds clear to auscultation bilaterally and equal noted. No wheezes rales or rhonchi noted. No significant dullness noted on percussion. CHEST: Palpation of the chest wall shows no significant chest wall tenderness. HEART: [place] [employer] TR[employer], No PSH, 1/6 JIMMIE aortic area, 1/6 johns systolic murmur mitral area, no rubs, no gallops. ABDOMEN: Soft, postsurgical changes of cholecystectomy noted, normoactive bowel sounds. No guarding, no rebound. No rigidity noted . No masses appreciated. EXTREMITIES: Pedal pulses are 1-2+, no calf tenderness noted. No clubbing or cyanosis. negative pedal edema noted NEUROLOGICAL: Focused neurological exam showed no significant neurologic deficit. Normal speech, no focal weakness appreciated. PSYCH: Normal mood, normal affect. Judgment and insight within normal limits. SKIN: No significant ecchymosis, skin is noted to be warm. MUSCULOSKELETAL EXAM: No significant acute joint swelling noted. Results EKG Comments: Shows sinus rhythm with left bundle branch block pattern. Impressions: Abdomen Ultrasound 07/29/17 09:56 IMPRESSION: 1 cm stone in the gallbladder neck Assessment & Plan - Diagnosis (1) Left bundle branch block Is this a current diagnosis for this admission?: Yes (2) Sleep disorder Is this a current diagnosis for this admission?: Yes (3) Anemia Qualifiers: Anemia type: unspecified type Qualified Code(s): D64.9 - Anemia, unspecified Is this a current diagnosis for this admission?: Yes (4) Status post cholecystectomy Is this a current diagnosis for this admission?: Yes - Notes Notes: Left bundle branch block pattern: Twelve-lead EKG shows this abnormality. Unfortunately there is no previous EKGs that we can track or obtained. Patient has been noted to have intermittent narrow complexes. Narrow complexes are mainly noted when she is somewhat bradycardic. Left bundle branch block pattern is therefore could be rate related and indicates conduction disease. Patient could have underlying cardiomyopathy. A 2D echocardiogram however was obtained and it shows low normal LVEF. At this point feel that patient can be discharged with a event monitor as an outpatient. This is to look for any other conduction abnormalities but patient denies any prior history of syncope or near syncope. Will also obtain a treadmill stress test at a later date possibly a stress echo to look for heart rate response with exercise and stress the conduction system of the heart. However this would be performed as an outpatient. Sleep disorder: Patient's oropharyngeal exam, symptoms indicate that she may have underlying sleep apnea. Patient also was noted to have borderline LVH. Have discussed further evaluation with his sleep study as an outpatient. Patient and her are agreeable. Anemia: Currently hemoglobin seems stable. Status post cholecystectomy: Will leave management plans to the surgical list. - Time Time Spent: 30 to 50 Minutes - CODE STATUS was discussed, patient remains full code. Surrogate decision-maker patient's . Multiple medical problems were addressed. More than 50% of the time spent coordinating care, discussing management plans with involved caregivers. Management plans discussed with involved personnels. Medical decision making was of moderate to high complexity , patient's has multiple comorbidities. Medications reviewed and adjusted accordingly: Yes
[2017-07-31 05:35] LABS: NT PRO BNP 168 pg/mL (<125); TROPONIN I < 0.012 ng/mL
[2017-07-31] MEDS: NORMAL SALINE 1000 ML 1,000 ML IV PRN (06:46)
--- NOTE | 2017-07-31 11:44 | PDOC PROGRESS REPORT ---
Subjective Progress Note for:: 07/31/17 Subjective:: Patient seems to be doing better with gradual improvement. Pt is denying any chest arm or neck discomfort. Patient denying any PND, orthopnea. Patient denied any sustained palpitations, dizziness, syncope, near syncope. Patient denying any fever chills. Patient denying any other significant discomfort. Patient is maintaining sinus rhythm. Sinus bradycardia noted Review of systems: Rest review of systems negative. Medications: Medications have been reviewed. Reason For Visit: ACUTE CHOLELITHIASIS Physical Exam Vital Signs: Temp Pulse Resp BP Pulse Ox 98.6 F 66 16 113/70 100 07/31/17 07:40 07/31/17 07:40 07/31/17 07:40 07/31/17 07:40 07/31/17 07:40 Intake & Output 07/30/17 07/31/17 08/01/17 06:59 06:59 06:59 Intake Total 2500 2928 Output Total 160 Balance 2340 2928 Weight 69.9 kg 69.8 kg Exam: GENERAL: well-nourished and in no acute distress. Alert and oriented x3 HEAD: Atraumatic, normocephalic. EYES: Pupils equal round and reactive to light, extraocular movements intact, sclera anicteric, conjunctiva are normal. ENT: TMs normal, nares patent, oropharynx clear without exudates. Moist mucous membranes. No oral ulcerations or bleeding gums noted NECK: supple without lymphadenopathy. Trachea is central. No cervical or axillary lymphadenopathy noted. Carotids are 2+, JVD WNL LUNGS: Respiration seems nonlabored, no significant accessory muscle action noted. Breath sounds clear to auscultation bilaterally and equal noted. No wheezes rales or rhonchi noted. No significant dullness noted on percussion. CHEST: Palpation of the chest wall shows no significant chest wall tenderness. 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 ABDOMEN: Soft, slight incisional tenderness appreciated, normoactive bowel sounds. No guarding, no rebound. No rigidity noted . No masses appreciated. EXTREMITIES: Pedal pulses are 1-2+, no calf tenderness noted. No clubbing or cyanosis. negative pedal edema noted NEUROLOGICAL: Focused neurological exam showed no significant neurologic deficit. Normal speech, no focal weakness appreciated. PSYCH: Normal mood, normal affect. Judgment and insight within normal limits. SKIN: No significant ecchymosis, skin is noted to be warm. MUSCULOSKELETAL EXAM: No significant acute joint swelling noted. Results Laboratory Results: 07/31/17 04:20 Troponin I < 0.012 NT-Pro-B Natriuret Pep 168 H EKG Comments: Telemetry strips shows intermittent left bundle branch block pattern, intermittent bradycardia with normal QRS. Patient maintaining sinus rhythm. Impressions: Abdomen Ultrasound 07/29/17 09:56 IMPRESSION: 1 cm stone in the gallbladder neck Assessment & Plan - Diagnosis (1) Left bundle branch block Is this a current diagnosis for this admission?: Yes (2) Sleep disorder Is this a current diagnosis for this admission?: Yes (3) Anemia Qualifiers: Anemia type: unspecified type Qualified Code(s): D64.9 - Anemia, unspecified Is this a current diagnosis for this admission?: Yes (4) Status post cholecystectomy Is this a current diagnosis for this admission?: Yes (5) Bradycardia Is this a current diagnosis for this admission?: Yes - Notes Notes: Recommendations: No significant change from yesterday. However have recommended patient to follow-up with me closely. Discussed that in follow-up, she would benefit from a cardiac event monitor, a sleep study and also a stress test to stress the conduction system of the heart. I also discussed 2D results which shows overall low normal LVEF without any significant valvular abnormalities. Borderline LVH noted. Left bundle branch block pattern: Twelve-lead EKG shows this abnormality. Unfortunately there is no previous EKGs that we can track or obtained. Patient has been noted to have intermittent narrow complexes. Narrow complexes are mainly noted when she is somewhat bradycardic. Left bundle branch block pattern is therefore could be rate related and indicates conduction disease. Patient could have underlying cardiomyopathy. A 2D echocardiogram however was obtained and it shows low normal LVEF. At this point feel that patient can be discharged with a event monitor as an outpatient. This is to look for any other conduction abnormalities but patient denies any prior history of syncope or near syncope. Will also obtain a treadmill stress test at a later date possibly a stress echo to look for heart rate response with exercise and stress the conduction system of the heart. However this would be performed as an outpatient. Sleep disorder: Patient's oropharyngeal exam, symptoms indicate that she may have underlying sleep apnea. Patient also was noted to have borderline LVH. Have discussed further evaluation with his sleep study as an outpatient. Patient and her are agreeable. Anemia: Currently hemoglobin seems stable. Status post cholecystectomy: Will leave management plans to the surgical list. - Time Time with patient: Greater than 35 minutes - Long discussion entered with patient about left bundle branch block pattern, implications etc. Discussed that further evaluation should be completed as an outpatient to assess course and prognosis. Patient's is the surrogate decision-maker Medications reviewed and adjusted accordingly: Yes
--- NOTE | 2017-07-31 13:13 | PDOC PROGRESS REPORT ---
Subjective Progress Note for:: 07/31/17 Subjective:: Feels well. No complaints. Reason For Visit: ACUTE CHOLELITHIASIS Physical Exam Vital Signs: Temp Pulse Resp BP Pulse Ox 98.6 F 66 16 113/70 100 07/31/17 07:40 07/31/17 07:40 07/31/17 07:40 07/31/17 07:40 07/31/17 07:40 Intake & Output 07/30/17 07/31/17 08/01/17 06:59 06:59 06:59 Intake Total 2500 2928 375 Output Total 160 Balance 2340 2928 375 Weight 69.9 kg 69.8 kg General appearance: PRESENT: no acute distress, cooperative Respiratory exam: PRESENT: clear to auscultation marcela Cardiovascular exam: PRESENT: RRR GI/Abdominal exam: PRESENT: other - Soft, nondistended, minimal tenderness. Wound clean dry and intact. Extremities exam: PRESENT: other - No swelling and no tenderness. Results Laboratory Results: 07/31/17 04:20 Troponin I < 0.012 NT-Pro-B Natriuret Pep 168 H Impressions: Abdomen Ultrasound 07/29/17 09:56 IMPRESSION: 1 cm stone in the gallbladder neck Assessment & Plan - Diagnosis (1) Cholecystitis with cholelithiasis Is this a current diagnosis for this admission?: Yes Plan: Status post laparoscopic cholecystectomy. Patient doing very well. Will discharge patient home. Cardiology has cleared the patient to be discharged home in regards to her left bundle branch block. She will be followed up with cardiology for further testing and monitoring. (2) Urinary tract infection Qualifiers: Urinary tract infection type: acute cystitis Hematuria presence: without hematuria Qualified Code(s): N30.00 - Acute cystitis without hematuria Is this a current diagnosis for this admission?: Yes Plan: We will have patient take Levaquin for 3 more days. 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 She has seen dermatology in the past but not recently. Highly recommended to the patient evaluation with dermatology after she is discharged for close follow-up.
--- NOTE | 2017-07-31 13:30 | DISCHARGE SUMMARY E ---
Discharge Summary NAME: LETICIA NOBLE : 1990 AGE: 27Y ADMITTED: 07/29/2017 DISCHARGED: 07/31/2017 FINAL DIAGNOSES: 1. Acute cholecystitis with cholelithiasis. 2. Left bundle branch block. 3. Urinary tract infection 4. Congenital giant nevus of the back. PROCEDURE PERFORMED DURING HOSPITALIZATION: Laparoscopic cholecystectomy performed by Dr. Ness Keita on July 29, 2017. HOSPITAL COURSE: The patient underwent the abovementioned surgery. She was noted postoperatively with evidence of left bundle branch block. She was asymptomatic in regards. Consultation was obtained from Cardiology. She underwent an echocardiogram, which demonstrated an ejection fraction of 50% to 55%, with normal left ventricular systolic function. Impression was that of borderline concentric left ventricular hypertrophy with low-normal systolic function of the left ventricle. Cardiology felt that she would be safe to discharge home with close Cardiology followup and further testing. Cardiology was to set her up for outpatient monitoring. The patient did well in regards to her gallbladder surgery and was tolerating a diet well, with minimal abdominal pain at the time of discharge. Patient is now being discharged to home in good condition. She will follow up with Dr. Mott (Cardiology). She will also follow up with [facility] in 2 weeks. Patient was also noted with evidence of a urinary tract infection and she was treated with Levaquin in the hospital which will be continued as an outpatient for several more days. She is encouraged to stay active but avoid strenuous activity. She may resume a normal diet. Patient has congenital giant nevus of the back. She was strongly advised to get appointment with a latex spooler for close follow-up. DISCHARGE MEDICATION: Percocet 1 p.o. q.4 hours p.r.n. pain. Levaquin 500 mg p.o. daily for 3 more days. DICTATING PHYSICIAN: NESS KEITA M.D. [id number] PHY#: [id number] ID: [id number] JOB#: [id number] ACCT: [id number] cc:NESS KEITA M.D. [facility] [[email or web address]], [facility]
[2017-07-31 13:38] VITALS: BP 130/75
== END 2017-07-31 14:00 | disposition home or self-care (01) ==
LOC: ER 08:10 → EH 13:26 → 2S 14:39 → 3N 21:36
PROVIDERS: ATTEND Surgery
PROC: 0FT44ZZ Resection of Gallbladder, Percutaneous Endoscopic Approach (ICD-10-PCS; principal; 2017-07-29 18:00)
DX: O99.63 Diseases of the digestive system complicating the puerperium (principal); K80.10 Calculus of gallbladder with chronic cholecystitis without obstruction; O99.89 Other specified diseases and conditions complicating pregnancy, childbirth and the puerperium; I44.7 Left bundle-branch block, unspecified; O86.22 Infection of bladder following delivery; Q82.5 Congenital non-neoplastic nevus; D22.5 Melanocytic nevi of trunk; R00.1 Bradycardia, unspecified; O90.81 Anemia of the puerperium; D64.9 Anemia, unspecified; G47.9 Sleep disorder, unspecified; R53.83 Other fatigue; R06.02 Shortness of breath; I51.7 Cardiomegaly; Z87.440 Personal history of urinary (tract) infections
CPT/HCPCS: 99285; 36415 ×2; 87040; 87086; 83690; 85025; 81025; 80053; 81001; 84484; 83880; 88304 ×2; 93306; 76705; 93005; 93010; 47562; J1956 ×2; J3490 ×5; J1100; J1885; J2765; J1170 ×2; J0330; J2405; S0020; J7030 ×3; S0028; 790

== ENCOUNTER 2018-12-26 18:03 | Emergency (ER) | payer SELFPAY ==
[2018-12-26 18:14] VITALS: BP 134/73
--- NOTE | 2018-12-26 18:31 | ER Document Report ---
HPI - HPI Patient complains to provider of: Dental pain Time Seen by Provider: 12/26/18 18:17 Onset: Other - 1 year Onset/Duration: Waxing and waning Quality of pain: Achy Pain Level: 3 Context: This 28-year-old female presents emergency department with complaints of left lower dental pain for the past year that comes and goes. Reports last year she went to the dentist and they scraped the cavity and since that time she is had pain. She reports pain when she lays on that side. Denies fever vomiting diarrhea. Has been using liquid Orajel for the pain without relief of symptoms. Patient reports she has not had time to follow up with the dentist because she works. - REPRODUCTIVE Reproductive: DENIES: : Past Medical History - General Information source: Patient - Social History Smoking Status: Never Smoker Chew tobacco use (# tins/day): No Frequency of alcohol use: None Drug Abuse: None Occupation: [employer] Family History: Reviewed & Not Pertinent - Family history negative for premature coronary artery disease or sudden cardiac in immediate family members Patient has suicidal ideation: No Patient has homicidal ideation: No - Medical History Medical History: Negative Pulmonary Medical History: Denies: Hx Asthma Neurological Medical History: Denies: Hx Migraine, Hx Seizures Renal/ Medical History: Denies: Hx Peritoneal Dialysis Psychiatric Medical History: Denies: Hx Depression Surgical Hx: Negative - Immunizations Immunizations up to date: Yes Vertical Provider Document - CONSTITUTIONAL Agree With Documented VS: Yes Exam Limitations: No Limitations General Appearance: WD/WN, No Apparent Distress - INFECTION CONTROL TRAVEL OUTSIDE OF THE [place] IN LAST 30 DAYS: No - HEENT HEENT: Atraumatic, Normocephalic. negative: Conjuctival Injection, Pharyngeal Erythema, Tympanic Membrane Red Mouth Diagram: 1 - reports pain, opens mouth wide no trismus no obvious swelling no pustule no erythema, no ludwigss - NECK Neck: Normal Inspection, Supple. negative: Lymphadenopathy-Left, Lymphadenopathy-Right - RESPIRATORY Respiratory: No Respiratory Distress - 3190 - CARDIOVASCULAR Cardiovascular: Regular Rate - 3193 - MUSCULOSKELETAL/EXTREMETIES Musculoskeletal/Extremeties: VICK SHIPMAN - NEURO Level of Consciousness: Awake, Alert, Appropriate Motor/Sensory: No Motor Deficit - DERM Integumentary: Warm, Dry Course - Re-evaluation Re-evalutation: 12/26/18 18:29 28-year-old female that presents to the emergency department with complaints of left lower dental pain on and off for the past year. Reports it started after she went to the dentist. She reports she has not had time to follow back up with the dentist. Has been using liquid Orajel without relief of symptoms. Patient was instructed on the importance of follow-up with the dentist. She was prescribed Pen-Vee K and was instructed that this was not fixing her dental pain was just temporary. She verbalized understanding to all instructions. Patient was encouraged to contact her dentist tomorrow for an appointment. Dictation of this chart was performed using voice recognition software; therefo re, there may be some unintended grammatical errors. - Vital Signs Vital signs: Temp Pulse Resp BP Pulse Ox 98.5 F 73 18 134/73 H 99 12/26/18 18:10 12/26/18 18:10 12/26/18 18:10 12/26/18 18:10 12/26/18 18:10 Discharge - Discharge Clinical Impression: Pain, dental Condition: Stable Disposition: HOME, SELF-CARE Instructions: Penicillin V K ([facility]), Toothache ([facility]) Additional Instructions: *You have been evaluated for dental pain *Take medications as prescribed *Take ibuprofen as indicated for pain *Follow up with your dentist this week to schedule an appointment *Return to ED for worsening condition, changes, needs Monitor your blood pressure. Your blood pressure was elevated today. This may be because you were anxious, in pain or because you need medication. It is important to follow up with your primary care provider for full evaluation. Prescriptions: Penicillin V Potassium [Penicillin Vk 500 mg Tablet] 500 mg PO BID #20 tablet Forms: Elevated Blood Pressure
== END 2018-12-26 18:41 | disposition home or self-care (01) ==
LOC: ER 18:03
DX: K08.89 Other specified disorders of teeth and supporting structures (principal)